=== PATIENT | female | born 1945 | race Caucasian/White ===

== ENCOUNTER 2016-12-27 12:08 | Emergency (ER) | payer MEDICARE, BC ==
[2016-12-27 12:26] VITALS: BP 121/77
--- NOTE | 2016-12-27 12:48 | EDM.PDOC ---
ED HPI GENERAL MEDICAL PROBLEM - General Chief Complaint: Headache Stated Complaint: PRESSURE R SIDE OF HEAD Time Seen by Provider: 12/27/16 12:33 Source of Information: Reports: Patient History Limitations: Reports: No Limitations - History of Present Illness INITIAL COMMENTS - FREE TEXT/NARRATIVE: Patient is a 71-year-old female presents to the ED complaining of right-sided head pressure that started approximately 2 days ago. She has a history of hemorrhagic stroke in 2013 with similar symptoms. States discomfort has been constant with increase noted with laying down. She is chronically anticoagulated with Coumadin. Denies any recent trauma. 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 Denies any vision changes, nausea/ vomiting, chest pain, shortness breath, dysuria, or any additional complaints. Last INR is unknown. Right Head Pain Score (Numeric/FACES): 5 - Related Data Allergies Allergy/AdvReac Type Severity Reaction Status Date / Time cephalexin Allergy Cannot Verified 12/27/16 12:27 Remember clarithromycin Allergy Pain Verified 12/27/16 12:27 codeine Allergy Cannot Verified 12/27/16 12:27 Remember Dairy Products Allergy Cannot Verified 12/27/16 12:27 Remember dextromethorphan Allergy Cannot Verified 12/27/16 12:27 Remember doxycycline Allergy Cannot Verified 12/27/16 12:27 Remember guaifenesin Allergy Cannot Verified 12/27/16 12:27 Remember Penicillins Allergy Rash Verified 12/27/16 12:27 phenobarbital Allergy Cannot Verified 12/27/16 12:27 Remember promethazine Allergy Diarrhea Verified 12/27/16 12:27 sodium benzoate Allergy Hives Verified 12/27/16 12:27 Sulfa (Sulfonamide Allergy Cannot Verified 12/27/16 12:27 Antibiotics) Remember Home Meds: Home Meds Ezetimibe [Zetia] 10 mg PO DAILY 12/13/13 [History] Acetaminophen [Tylenol] 325 mg PO TID PRN 09/15/15 [History] Famotidine 20 mg PO BID 09/15/15 [History] Metoprolol Tartrate [Metoprolol Tartrate] 12.5 mg PO BID 09/15/15 [History] Sertraline HCl [Zoloft] 100 mg PO DAILY 09/15/15 [History] Simvastatin [Zocor] 20 mg PO BEDTIME 09/15/15 [History] Warfarin [Coumadin] 0.5 mg PO SUMOTUTHFR 09/15/15 [History] Warfarin [Coumadin] 1 mg PO WESA 09/15/15 [History] Past Medical History HEENT History: Reports: Allergic Rhinitis, Impaired Vision Cardiovascular History: Reports: Afib, Heart Murmur, High Cholesterol, Hypertension, Pacemaker, Other (See Below) Other Cardiovascular History: aortic valve stenosis, palpitations Respiratory History: Reports: Other (See Below) Other Respiratory History: aspiration pneumonia Gastrointestinal History: Reports: GERD Genitourinary History: Reports: Urinary Incontinence [employer] History: Reports: Musculoskeletal History: Reports: Arthritis, Back Pain, Chronic, Osteoarthritis Neurological History: Reports: CVA, Seizure Other Neuro History: left sided paralysis Psychiatric History: Reports: Anxiety, Depression Other Psychiatric History: states she gets excited real easy Endocrine/Metabolic History: Reports: None Hematologic History: Reports: Other (See Below) Other Hematologic History: factor 5 leiden Immunologic History: Reports: None Oncologic (Cancer) History: Reports: None Dermatologic History: Reports: None - Past Surgical History Head Surgeries/Procedures: Reports: None HEENT Surgical History: Reports: Cataract Surgery Female Surgical History: Reports: Tubal Ligation Social & Family History - Family History Family Medical History: Noncontributory Neurological: Reports: CVA - Tobacco Use Smoking Status *Q: Never Smoker - Caffeine Use Caffeine Use: Reports: Soda - Alcohol Use Days Per Week of Alcohol Use: 0 - Recreational Drug Use Recreational Drug Use: No - Living Situation & Occupation Living situation: Reports: , with Spouse Occupation: Retired ED ROS GENERAL - Review of Systems Review Of Systems: ROS reveals no pertinent complaints other than HPI. - Physical Exam Exam: See Below Exam Limited By: No Limitations General Appearance: Alert, WD/WN, No Apparent Distress Eye Exam: Bilateral Eye: EOMI, PERRL Ears: Hearing Grossly Normal Nose: Normal Inspection Throat/Mouth: Normal Voice, No Airway Compromise Neck: Normal Inspection, Supple, Non-Tender, Limited Range of Motion (2nd to previous stroke). No: Carotid Bruit Respiratory/Chest: No Respiratory Distress, Lungs Clear, Normal Breath Sounds, No Accessory Muscle Use Cardiovascular: Normal Peripheral Pulses, Regular Rate, Rhythm, Systolic Murmur (3/6) GI/Abdominal: Normal Bowel Sounds, Soft, Non-Tender, No Organomegaly, No Distention Neuro Exam (Abbreviated): Alert, Oriented, CN II-XII Intact, Normal Cognition, Other (Left-sided paralysis with left-sided facial droop status post epidural hemorrhagic stroke in 2014.) Back Exam: Normal Inspection Extremities: Non-Tender, No Pedal Edema, Normal Capillary Refill Psychiatric: Normal Affect, Normal Mood Skin Exam: Warm, Dry, Intact, Normal Color Course - Vital Signs Last Recorded V/S: Last Vital Signs Temp 99.1 F 12/27/16 12:19 Pulse 63 12/27/16 12:19 Resp 16 12/27/16 12:19 BP 121/77 12/27/16 12:19 Pulse Ox 93 L 12/27/16 12:19 - Orders/Labs/Meds Orders: Active Orders 24 hr Category Date Time Status EKG Documentation Completion [RC] STAT Care 12/27/16 12:42 Active Labs: Laboratory Tests 12/27/16 12/27/16 12/27/16 Range/Units 13:10 13:10 13:10 WBC 6.97 (3.98-10.04) K/mm3 RBC 4.23 (3.98-5.22) M/mm3 Hgb 13.0 (11.2-15.7) gm/L Hct 41.1 (34.1-44.9) % MCV 97.2 H (79.4-94.8) fl MCH 30.7 (25.6-32.2) pg MCHC 31.6 L (32.2-35.5) g/dl RDW Std Deviation 49.8 H (36.4-46.3) fL Plt Count 275 (182-369) K/mm3 MPV 9.6 (9.4-12.3) fl Neut % (Auto) 75.5 H (34.0-71.1) % Lymph % (Auto) 13.1 L (19.3-51.7) % Mason % (Auto) 6.7 (4.7-12.5) % Eos % (Auto) 4.0 (0.7-5.8) Baso % (Auto) 0.4 (0.1-1.2) % Neut # (Auto) 5.26 (1.56-6.13) K/mm3 Lymph # (Auto) 0.91 L (1.18-3.74) K/mm3 Mason # (Auto) 0.47 H (0.24-0.36) K/mm3 Eos # (Auto) 0.28 (0.04-0.36) K/mm3 Baso # (Auto) 0.03 (0.01-0.08) K/mm3 PT 31.0 H (8.0-13.0) SECONDS INR 2.67 Sodium 144 (136-145) mEq/L Potassium 3.9 (3.5-5.1) mEq/L Chloride 106 (98-107) mEq/L Carbon Dioxide 33 H (21-32) mEq/L Anion Gap 8.9 (5-15) BUN 16 (7-18) mg/dL Creatinine 0.8 (0.55-1.02) mg/dL Est Cr Clr Drug Dosing 53.35 mL/min Estimated GFR (MDRD) > 60 (>60) mL/min BUN/Creatinine Ratio 20.0 H (14-18) Glucose 121 H (83-115) mg/dL Calcium 9.1 (8.5-10.1) mg/dL Total Bilirubin 0.3 (0.2-1.0) mg/dL AST 12 L (15-37) U/L ALT 12 L (14-59) U/L Alkaline Phosphatase 103 (46-116) U/L Total Protein 7.9 (6.4-8.2) g/dl Albumin 3.2 L (3.4-5.0) g/dl Globulin 4.7 gm/dL Albumin/Globulin Ratio 0.7 L (1-2) Meds: Medications Discontinued Medications Generic Name Dose Route Start Last Admin Trade Name Freq PRN Reason Stop Dose Admin Acetaminophen 325 mg 12/27/16 13:46 12/27/16 14:14 Tylenol PO 12/27/16 13:47 325 mg NOW ONE Administration - Re-Assessments/Exams Free Text/Narrative Re-Assessment/Exam: Initial labs and studies include: CBC, C14, PT/INR, UA w/micro, EKG, and Head wo contrast. Labs reviewed: White blood cell count 6.97, hemoglobin 13.0, neutrophil percentage is 75.5, lymphocyte percentage 13.1, INR is 2.67 which is therapeutic , sodium 144, potassium 3.9, AG 8.9, creatinine 0.8, and glucose 121. EKG revealed: Atrial paced rhythm with right bundle branch block and left anterior fascicular block. Rate of 59. No acute ST changes noted. Head CT without contrast impression: Old right-sided infarct. Nothing acute is appreciated on noncontrast head CT exam. No changes seen from prior head CT exam. Ordered Tylenol 325 by mouth. 12/27/16 15:23 headache has not improved with the Tylenol. I offered other medications to which she has refused. They are ready to go home. Discharge instructions as documented. Departure - Departure Time of Disposition: 15:24 Disposition: Home, Self-Care 01 Condition: Good Clinical Impression: Headache Qualifiers: Headache type: unspecified Headache chronicity pattern: acute headache Intractability: not intractable Qualified Code(s): R51 - Headache - Discharge Information Instructions: General Headache Without Cause Referrals: Zach Gonzalez MD [Primary Care Provider] - Forms: ED Department Discharge Additional Instructions: As discussed CT of the head did not reveal any acute findings. Etiology of headache unclear at this point. With history of hemorrhagic stroke to the right side may be the underlying reason why your having a headache. It is common for people to have headaches to areas that have had previous brain damage. Treatment is usually symptomatic care including Tylenol and ibuprofen in alternating fashion.You did not get relief with the Tylenol administered in the ED. Higher dose may be required. Your INR was 2.67 which is therapeutic. Please follow up with your PCP this coming week for reevaluation if symptoms are not drastically improving. Return to ED for any new or worsening symptoms. - My Orders Last 24 Hours: My Active Orders 12/27/16 12:42 EKG Documentation Completion [RC] STAT - Assessment/Plan Last 24 Hours: My Active Orders 12/27/16 12:42 EKG Documentation Completion [RC] STAT
--- NOTE | 2016-12-27 13:17 | CT ---
Head CT Technique: Multiple axial sections through the brain were obtained. Intravenous contrast was not utilized. Comparison: Previous head CT exam of 01/19/16. Findings: Old infarct is identified within the right frontal and temporal region. There is ex vacuole enlargement of the right lateral ventricle. No other abnormal parenchymal densities are seen. No midline shift or mass effect is seen. Bone window settings were reviewed which shows no acute calvarial abnormality. Visualized sinuses are clear. Impression: 1. Old right-sided infarct. Nothing acute is appreciated on noncontrast head CT exam. No significant change is seen from prior head CT exam. Diagnostic code #2
[2016-12-27] MEDS ORDERED: Acetaminophen 325 MG Tab PO ONE (13:46)
== END 2016-12-27 15:30 | disposition home or self-care (01) ==
LOC: JD.ED 12:08
DX: R51 Headache (principal); I48.91 Unspecified atrial fibrillation; E78.00 Pure hypercholesterolemia, unspecified; I10 Essential (primary) hypertension; K21.9 Gastro-esophageal reflux disease without esophagitis; Z86.73 Personal history of transient ischemic attack (TIA), and cerebral infarction without residual deficits; Z88.1 Allergy status to other antibiotic agents; Z88.5 Allergy status to narcotic agent; Z91.011 Allergy to milk products; Z88.0 Allergy status to penicillin; Z88.2 Allergy status to sulfonamides; Z79.899 Other long term (current) drug therapy; Z79.01 Long term (current) use of anticoagulants; Z98.49 Cataract extraction status, unspecified eye
CPT/HCPCS: 36415; 70450; 80053; 85025; 85610; 93005; 99285; A9270; 99283

== ENCOUNTER 2017-01-04 17:39 | Inpatient (IN) | payer MEDICARE, BC ==
--- NOTE | 2017-01-04 18:29 | EDM.PDOC ---
ED HPI GENERAL MEDICAL PROBLEM - General Chief Complaint: General Stated Complaint: [facility] EVAL Time Seen by Provider: 01/04/17 18:16 Source of Information: Reports: Patient History Limitations: Reports: No Limitations - History of Present Illness INITIAL COMMENTS - FREE TEXT/NARRATIVE: 71 y/o F presents requesting fci placement. 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 She has no other complaints. Her normally cares for her at home. She needs help with transfers. However he had radiation seeds implanted in his prostate yesterday for prostate surgery and was told that he cannot lift more than 20 pounds. They do not have family in town to help beyond today. They weren't aware of this lifting restriction so hadn't made plans for her care. She does have some respite care on occasion but that resources not available for the next 3 weeks. She also has home health for a bath a couple of times a week. However she needs assistance multiple times a day with transfers and this does require heavy lifting and family currently has no other options. They did discuss with one of the local nursing homes but were told that she would have to be admitted to the hospital first. She otherwise feels well, denies fever, chest pain, cough, abdominal pain, vomiting, diarrhea , urinary symptoms, or any new neurological symptoms. - Related Data Allergies Allergy/AdvReac Type Severity Reaction Status Date / Time cephalexin Allergy Cannot Verified 01/04/17 20:58 Remember clarithromycin Allergy Pain Verified 01/04/17 20:58 codeine Allergy Cannot Verified 01/04/17 20:58 Remember Dairy Products Allergy Cannot Verified 01/04/17 20:58 Remember dextromethorphan Allergy Cannot Verified 01/04/17 20:58 Remember doxycycline Allergy Cannot Verified 01/04/17 20:58 Remember guaifenesin Allergy Cannot Verified 01/04/17 20:58 Remember Penicillins Allergy Rash Verified 01/04/17 20:58 phenobarbital Allergy Cannot Verified 01/04/17 20:58 Remember promethazine Allergy Diarrhea Verified 01/04/17 20:58 sodium benzoate Allergy Hives Verified 01/04/17 20:58 Sulfa (Sulfonamide Allergy Cannot Verified 01/04/17 20:58 Antibiotics) Remember Home Meds: Home Meds Ezetimibe [Zetia] 10 mg PO DAILY 12/13/13 [History] Acetaminophen [Tylenol] 325 mg PO TID PRN 09/15/15 [History] Famotidine 20 mg PO BID 09/15/15 [History] Metoprolol Tartrate [Metoprolol Tartrate] 12.5 mg PO BID 09/15/15 [History] Sertraline HCl [Zoloft] 100 mg PO DAILY 09/15/15 [History] Simvastatin [Zocor] 20 mg PO BEDTIME 09/15/15 [History] Warfarin [Coumadin] 0.5 mg PO SUMOTUTHFR 09/15/15 [History] Warfarin [Coumadin] 1 mg PO WESA 09/15/15 [History] Acetaminophen [Tylenol] 325 mg PO BEDTIME 01/04/17 [History] Past Medical History HEENT History: Reports: Allergic Rhinitis, Impaired Vision Cardiovascular History: Reports: Afib, Heart Murmur, High Cholesterol, Hypertension, Pacemaker, Other (See Below) Other Cardiovascular History: aortic valve stenosis, palpitations Respiratory History: Reports: Other (See Below) Other Respiratory History: aspiration pneumonia Gastrointestinal History: Reports: GERD Genitourinary History: Reports: Urinary Incontinence [employer] History: Reports: Musculoskeletal History: Reports: Arthritis, Back Pain, Chronic, Osteoarthritis Neurological History: Reports: CVA, Seizure Other Neuro History: left sided paralysis Psychiatric History: Reports: Anxiety, Depression Other Psychiatric History: states she gets excited real easy Endocrine/Metabolic History: Reports: None Hematologic History: Reports: Other (See Below) Other Hematologic History: factor 5 leiden Immunologic History: Reports: None Oncologic (Cancer) History: Reports: None Dermatologic History: Reports: None - Past Surgical History Head Surgeries/Procedures: Reports: None HEENT Surgical History: Reports: Cataract Surgery Female Surgical History: Reports: Tubal Ligation Social & Family History - Family History Family Medical History: Noncontributory Neurological: Reports: CVA - Tobacco Use Smoking Status *Q: Never Smoker - Caffeine Use Caffeine Use: Reports: Soda - Alcohol Use Days Per Week of Alcohol Use: 0 - Recreational Drug Use Recreational Drug Use: No - Living Situation & Occupation Living situation: Reports: , with Spouse Occupation: Retired ED ROS GENERAL - Review of Systems Review Of Systems: See Below Constitutional: Denies: Fever HEENT: Reports: No Symptoms Respiratory: Denies: Shortness of Breath Cardiovascular: Denies: Chest Pain Endocrine: Reports: No Symptoms GI/Abdominal: Denies: Abdominal Pain : Denies: Dysuria Musculoskeletal: Reports: No Symptoms Skin: Reports: No Symptoms Neurological: Denies: Headache Psychiatric: Reports: No Symptoms Hematologic/Lymphatic: Reports: No Symptoms ED EXAM, GENERAL - Physical Exam Exam: See Below Exam Limited By: No Limitations General Appearance: Alert, WD/WN, No Apparent Distress Eye Exam: Bilateral Eye: PERRL Ears: Normal External Exam Nose: Normal Inspection Throat/Mouth: Normal Inspection, Normal Voice, No Airway Compromise Head: Atraumatic, Normocephalic Neck: Normal Inspection, Supple, Non-Tender, Full Range of Motion Respiratory/Chest: No Respiratory Distress, Lungs Clear, Normal Breath Sounds, No Accessory Muscle Use, Chest Non-Tender Cardiovascular: Normal Peripheral Pulses, Regular Rate, Rhythm, No Edema, No Murmur GI/Abdominal: Soft, Non-Tender, No Distention. No: Rebound Extremities: Normal Inspection Neurological: Alert, Oriented, Normal Cognition Psychiatric: Normal Affect, Normal Mood Skin Exam: Warm, Dry, Intact, Normal Color, No Rash Course - Vital Signs Last Recorded V/S: Last Vital Signs Temp 36.6 C 01/05/17 05:15 Pulse 60 01/05/17 05:15 Resp 14 01/05/17 05:15 BP 100/66 01/05/17 05:15 Pulse Ox 92 L 01/05/17 05:15 - Orders/Labs/Meds Orders: Active Orders 24 hr Category Date Time Status Cardiac Monitoring [RC] CONTINUOUS Care 01/04/17 19:07 Active Height and Weight [RC] 04 Care 01/04/17 19:06 Active Intake and Output [RC] 04,16 Care 01/04/17 19:06 Active Oxygen Therapy [RC] PRN Care 01/04/17 19:06 Active RT Aerosol Therapy [RC] ASDIRECTED Care 01/04/17 19:09 Active Up With Assistance [RC] ASDIRECTED Care 01/04/17 19:06 Active Up ad Juanita [RC] Care 01/04/17 19:06 Active VTE/DVT Education [RC] PER UNIT ROUTINE Care 01/04/17 19:06 Active Vital Signs [RC] Q4HR Care 01/04/17 19:06 Active Consult to Case Management [CONS] Routine Cons 01/04/17 19:06 Active Consult to Macerator Operator [CONS] Routine Cons 01/04/17 19:06 Active Consult to Spiritual Care [CONS] Routine Cons 01/04/17 19:06 Active OT Evaluation and Treatment [CONS] Routine Cons 01/04/17 19:06 Active PT Evaluation and Treatment [CONS] Routine Cons 01/04/17 19:06 Active Heart Healthy Diet [DIET] Diet 01/04/17 Dinner Active BASIC METABOLIC PANEL,BMP [CHEM] AM Lab 01/05/17 06:01 Received CBC WITH AUTO DIFF [HEME] AM Lab 01/05/17 06:01 Received MAGNESIUM [CHEM] AM Lab 01/05/17 06:01 Received Acetaminophen [Tylenol] Med 01/04/17 21:00 Active 325 mg PO BEDTIME Acetaminophen [Tylenol] Med 01/04/17 19:06 Active 650 mg PO Q4H PRN Acetaminophen/HYDROcodone [[place] 325-5 MG] Med 01/04/17 19:06 Active 1 tab PO Q4H PRN Albuterol/Ipratropium [DuoNeb 3.0-0.5 MG/3 ML] Med 01/04/17 19:06 Active 3 ml NEB Q4H PRN Bisacodyl [Dulcolax] Med 01/04/17 19:06 Active 5 mg PO DAILY PRN Docusate Sodium [Colace] Med 01/04/17 19:06 Active 100 mg PO BID PRN Docusate Sodium/Sennosides [Senna Plus] Med 01/04/17 19:06 Active 1 tab PO BID PRN Ezetimibe [Zetia] Med 01/05/17 09:00 Active 10 mg PO DAILY Famotidine [Pepcid] Med 01/04/17 21:00 Active 20 mg PO BID HYDROmorphone [Dilaudid] Med 01/04/17 19:06 Active 0.25 mg IVPUSH Q2H PRN LORazepam [Ativan] Med 01/04/17 19:06 Active 0.5 mg IV Q6H PRN LORazepam [Ativan] Med 01/04/17 19:10 Active 2 mg IVPUSH Q4H PRN Magnesium Rep Pharmacy to Dose [Pharmacy to Dose - Med 01/04/17 19:15 Pending Magnesium Replacement] 1 dose .XX ASDIRECTED Metoprolol Tartrate [Lopressor] Med 01/04/17 21:00 Active 12.5 mg PO BID Metoprolol Tartrate [Lopressor] Med 01/04/17 19:10 Active 5 mg IVPUSH Q4H PRN Ondansetron [Zofran] Med 01/04/17 19:06 Active 4 mg IV Q6H PRN Polyethylene Glycol 3350 [MiraLAX] Med 01/04/17 19:06 Active 17 gm PO DAILY PRN Potassium Rep Pharmacy to Dose [Pharmacy to Dose - Med 01/04/17 19:15 Pending Potassium Replacement] 1 dose .XX ASDIRECTED Promethazine [Phenergan] 12.5 mg Med 01/04/17 19:06 Active Sodium Chloride 0.9% [Normal Saline] 50 ml IV Q6H Sertraline [Zoloft] Med 01/05/17 09:00 Active 100 mg PO DAILY Simvastatin [Zocor] Med 01/04/17 21:00 Active 20 mg PO BEDTIME Temazepam [Restoril] Med 01/04/17 19:06 Active 7.5 mg PO BEDTIME PRN Warfarin [Coumadin] Med 01/05/17 18:00 Active 0.5 mg PO [id number]@1800 Precautions [COMM] Routine Oth 01/04/17 19:14 Ordered Resuscitation Status Routine Resus Stat 01/04/17 19:06 Ordered Medication Orders Acetaminophen (Tylenol) 650 mg PO Q4H PRN PRN Reason: Pain (Mild 1-3)/fever Acetaminophen (Tylenol) 325 mg PO BEDTIME [facility] Last Admin: 01/04/17 21:04 Dose: 325 mg Hydrocodone Bitart/Acetaminophen ([place] 325-5 Mg) 1 tab PO Q4H PRN PRN Reason: Pain (moderate 4-6) Albuterol/Ipratropium (Duoneb 3.0-0.5 Mg/3 Ml) 3 ml NEB Q4H PRN PRN Reason: Shortness Of Breath/wheezing Bisacodyl (Dulcolax) 5 mg PO DAILY PRN PRN Reason: Constipation Docusate Sodium (Colace) 100 mg PO BID PRN PRN Reason: Constipation Ezetimibe (Zetia) 10 mg PO DAILY [facility] Famotidine (Pepcid) 20 mg PO BID [facility] Last Admin: 01/04/17 21:04 Dose: 20 mg Hydromorphone HCl (Dilaudid) 0.25 mg IVPUSH Q2H PRN PRN Reason: Pain (severe 7-10) Promethazine HCl 12.5 mg/ (Sodium Chloride) 50.5 mls @ 100 mls/hr IV Q6H PRN PRN Reason: Nausea/Vomiting Lorazepam (Ativan) 0.5 mg IV Q6H PRN PRN Reason: Anxiety Lorazepam (Ativan) 2 mg IVPUSH Q4H PRN PRN Reason: Seizures Magnesium Sulfate (Pharmacy To Dose - Magnesium Replacement) 1 dose .XX ASDIRECTED [facility] Metoprolol Tartrate (Lopressor) 5 mg IVPUSH Q4H PRN PRN Reason: Tachycardia Metoprolol Tartrate (Lopressor) 12.5 mg PO BID [facility] Last Admin: 01/04/17 21:01 Dose: 12.5 mg Ondansetron HCl (Zofran) 4 mg IV Q6H PRN PRN Reason: Nausea/Vomiting Polyethylene Glycol (Miralax) 17 gm PO DAILY PRN PRN Reason: Constipation Potassium Chloride (Pharmacy To Dose - Potassium Replacement) 1 dose .XX ASDIRECTED [facility] Senna/Docusate Sodium (Senna Plus) 1 tab PO BID PRN PRN Reason: Constipation Sertraline HCl (Zoloft) 100 mg PO DAILY [facility] Simvastatin (Zocor) 20 mg PO BEDTIME [facility] Last Admin: 01/04/17 21:05 Dose: 20 mg Temazepam (Restoril) 7.5 mg PO BEDTIME PRN PRN Reason: Sleep Warfarin Sodium (Coumadin) 0.5 mg PO SuMoTuThFr@1800 [facility] Warfarin Sodium (Coumadin) 1 mg PO WeSa@1800 [facility] Last Admin: 01/04/17 22:44 Dose: 1 mg Labs: Laboratory Tests 01/04/17 Range/Units 19:26 PT 10.5 (8.0-13.0) SECONDS INR 0.97 Meds: Medications Generic Name Dose Route Start Last Admin Trade Name Freq PRN Reason Stop Dose Admin Acetaminophen 650 mg 01/04/17 19:06 Tylenol PO Q4H PRN Pain (Mild 1-3)/fever Acetaminophen 325 mg 01/04/17 21:00 01/04/17 21:04 Tylenol PO 325 mg BEDTIME [facility] Administration Hydrocodone Bitart/Acetaminophen 1 tab 01/04/17 19:06 [place] 325-5 Mg PO Q4H PRN Pain (moderate 4-6) Albuterol/Ipratropium 3 ml 01/04/17 19:06 Duoneb 3.0-0.5 Mg/3 Ml NEB Q4H PRN Shortness Of Breath/wheezing Bisacodyl 5 mg 01/04/17 19:06 Dulcolax PO DAILY PRN Constipation Docusate Sodium 100 mg 01/04/17 19:06 Colace PO BID PRN Constipation Ezetimibe 10 mg 01/05/17 09:00 Zetia PO DAILY [facility] Famotidine 20 mg 01/04/17 21:00 01/04/17 21:04 Pepcid PO 20 mg BID [facility] Administration Hydromorphone HCl 0.25 mg 01/04/17 19:06 Dilaudid IVPUSH Q2H PRN Pain (severe 7-10) Promethazine HCl 12.5 mg/ 50.5 mls @ 100 mls/hr 01/04/17 19:06 Sodium Chloride IV Q6H PRN Nausea/Vomiting Lorazepam 0.5 mg 01/04/17 19:06 Ativan IV Q6H PRN Anxiety Lorazepam 2 mg 01/04/17 19:10 Ativan IVPUSH Q4H PRN Seizures Magnesium Sulfate 1 dose 01/04/17 19:15 Pharmacy To Dose - Magnesium Replacement .XX ASDIRECTED [facility] Metoprolol Tartrate 5 mg 01/04/17 19:10 Lopressor IVPUSH Q4H PRN Tachycardia Metoprolol Tartrate 12.5 mg 01/04/17 21:00 01/04/17 21:01 Lopressor PO 12.5 mg BID [facility] Administration Ondansetron HCl 4 mg 01/04/17 19:06 Zofran IV Q6H PRN Nausea/Vomiting Polyethylene Glycol 17 gm 01/04/17 19:06 Miralax PO DAILY PRN Constipation Potassium Chloride 1 dose 01/04/17 19:15 Pharmacy To Dose - Potassium Replacement .XX ASDIRECTED [facility] Senna/Docusate Sodium 1 tab 01/04/17 19:06 Senna Plus PO BID PRN Constipation Sertraline HCl 100 mg 01/05/17 09:00 Zoloft PO DAILY [facility] Simvastatin 20 mg 01/04/17 21:00 01/04/17 21:05 Zocor PO 20 mg BEDTIME [facility] Administration Temazepam 7.5 mg 01/04/17 19:06 Restoril PO BEDTIME PRN Sleep Warfarin Sodium 0.5 mg 01/05/17 18:00 Coumadin PO SuMoTuThFr@1800 [facility] Warfarin Sodium 1 mg 01/04/17 22:15 01/04/17 22:44 Coumadin PO 1 mg WeSa@1800 [facility] Administration Discontinued Medications Generic Name Dose Route Start Last Admin Trade Name Dilip PRN Reason Stop Dose Admin Acetaminophen 325 mg 01/04/17 19:10 Tylenol PO TID PRN Pain Hydralazine HCl 20 mg 01/04/17 19:10 Apresoline IVPUSH Q4H PRN Hypertension - Re-Assessments/Exams Free Text/Narrative Re-Assessment/Exam: 01/04/17 18:[address] Harris who agrees to admit the patient. No studies ordered as she is not acutely ill. I do not feel that it is safe for the patient to go home as her has significant restrictions and her has also checked into the emergency department due to blood in the urine. If she were to be discharged, she would have no one able to help her with transfers and self care at home. It would be dangerous and inhumane to send her home with no one to care for her. We have no alternative but to admit her - [facility] will not accept her without an admission and we have limited ability to arrange alternate pediatric social worker for her on a Friday night. She has no other family available to help at this time. 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
--- NOTE | 2017-01-04 19:01 | PCM.HP ---
H&P History of Present Illness - General Date of Service: 01/04/17 Admit Problem/Dx: Inability to Care for Herself Source of Information: Patient, Family, Old Records, Provider, RN Notes Reviewed History Limitations: Reports: Physical Impairment - History of Present Illness Initial Comments - Free Text/Narative: This is a 71-year-old elderly white female with past medical history of allergic rhinitis, impaired vision, atrial fibrillation on warfarin, hypertension, hyperlipidemia, status post pacemaker placement, aortic valve stenosis, GERD, urinary incontinence, chronic back pain, OA/DJD, seizure disorder, anxiety, and depression who presents to the emergency department requesting half-way placement. Patient carries a history of left-sided paralysis secondary to CVA. Her is her primary caregiver at home. Unfortunately, her has been ill himself with prostate cancer. He recently undergone radiation seed implantation and was told he cannot lift more than 20 pounds. Patient has some respite care available but not for the next 3 weeks. Her family attempted to place her at [facility] but they were told she would have to come in for admission. Currently, she has no complaints. She denies any systemic signs of infections. She presents with no new neurological symptoms. The patient is being admitted for inability to care for herself and for half-way placement. She is full code. - Related Data Allergies/Adverse Reactions: Allergies Allergy/AdvReac Type Severity Reaction Status Date / Time cephalexin Allergy Cannot Verified 12/27/16 12:27 Remember clarithromycin Allergy Pain Verified 12/27/16 12:27 codeine Allergy Cannot Verified 12/27/16 12:27 Remember Dairy Products Allergy Cannot Verified 12/27/16 12:27 Remember dextromethorphan Allergy Cannot Verified 12/27/16 12:27 Remember doxycycline Allergy Cannot Verified 12/27/16 12:27 Remember guaifenesin Allergy Cannot Verified 12/27/16 12:27 Remember Penicillins Allergy Rash Verified 12/27/16 12:27 phenobarbital Allergy Cannot Verified 12/27/16 12:27 Remember promethazine Allergy Diarrhea Verified 12/27/16 12:27 sodium benzoate Allergy Hives Verified 12/27/16 12:27 Sulfa (Sulfonamide Allergy Cannot Verified 12/27/16 12:27 Antibiotics) Remember Home Medications: Home Meds Ezetimibe [Zetia] 10 mg PO DAILY 12/13/13 [History] Acetaminophen [Tylenol] 325 mg PO TID PRN 09/15/15 [History] Famotidine 20 mg PO BID 09/15/15 [History] Metoprolol Tartrate [Metoprolol Tartrate] 12.5 mg PO BID 09/15/15 [History] Sertraline HCl [Zoloft] 100 mg PO DAILY 09/15/15 [History] Simvastatin [Zocor] 20 mg PO BEDTIME 09/15/15 [History] Warfarin [Coumadin] 0.5 mg PO SUMOTUTHFR 09/15/15 [History] Warfarin [Coumadin] 1 mg PO WESA 09/15/15 [History] Acetaminophen [Tylenol] 325 mg PO BEDTIME 01/04/17 [History] Past Medical History HEENT History: Reports: Allergic Rhinitis, Impaired Vision Cardiovascular History: Reports: Afib, Heart Murmur, High Cholesterol, Hypertension, Pacemaker, Other (See Below) Other Cardiovascular History: aortic valve stenosis, palpitations Respiratory History: Reports: Other (See Below) Other Respiratory History: aspiration pneumonia Gastrointestinal History: Reports: GERD Genitourinary History: Reports: Urinary Incontinence 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: Musculoskeletal History: Reports: Arthritis, Back Pain, Chronic, Osteoarthritis Neurological History: Reports: CVA, Seizure Other Neuro History: left sided paralysis Psychiatric History: Reports: Anxiety, Depression Other Psychiatric History: states she gets excited real easy Endocrine/Metabolic History: Reports: None Hematologic History: Reports: Other (See Below) Other Hematologic History: factor 5 leiden Immunologic History: Reports: None Oncologic (Cancer) History: Reports: None Dermatologic History: Reports: None - Past Surgical History Head Surgeries/Procedures: Reports: None HEENT Surgical History: Reports: Cataract Surgery Female Surgical History: Reports: Tubal Ligation Social & Family History - Family History Family Medical History: Noncontributory Neurological: Reports: CVA - Tobacco Use Smoking Status *Q: Never Smoker - Caffeine Use Caffeine Use: Reports: Soda - Alcohol Use Days Per Week of Alcohol Use: 0 - Recreational Drug Use Recreational Drug Use: No - Living Situation & Occupation Living situation: Reports: , with Spouse Occupation: Retired [employer] Review of Systems - Review of Systems: Review Of Systems: See Below General: Denies: Fever, Chills, Malaise, Weakness, Fatigue HEENT: Reports: No Symptoms Pulmonary: Denies: Shortness of Breath Cardiovascular: Denies: Chest Pain Gastrointestinal: Denies: Abdominal Pain, Nausea, Vomiting Genitourinary: Reports: No Symptoms Musculoskeletal: Reports: No Symptoms Skin: Denies: Cyanosis, Rash Psychiatric: Denies: Depression, Mood Lability, Anxiety, Agitation, Hallucinations, Suicidal Ideation Neurological: Reports: Pre-Existing Deficit, Difficulty Walking, Weakness, Gait Disturbance. Denies: Confusion Hematologic/Lymphatic: Reports: No Symptoms Immunologic: Reports: No Symptoms Exam - Exam Exam: See Below - Vital Signs Vital Signs: Last Vital Signs Temp 37.0 C 01/04/17 17:58 Pulse 60 01/04/17 17:58 Resp 22 H 01/04/17 17:58 BP 117/79 01/04/17 17:58 Pulse Ox 91 L 01/04/17 17:58 Weight: 68.039 kg - Exam General: Alert, Oriented, Cooperative, Other (Complete hemiparesis on her left side) HEENT: Conjunctiva Clear, EOMI, Hearing Intact, Mucosa Moist & [place], Nares Patent, Normal Nasal Septum, Posterior Pharynx Clear, Pupils Equal, Pupils Reactive, Other (w/o denture on her upper front; noticeable facial asymmetry) Neck: Supple, Trachea Midline, Full Range of Motion, JVD Lungs: Clear to Auscultation, Normal Respiratory Effort Cardiovascular: Irregular Rhythm, Systolic Murmur, Other (Pacemaker on her right upper thorax) GI/Abdominal Exam: Normal Bowel Sounds, Soft, Non-Tender, No Organomegaly, No Distention, No Abnormal Bruit, No Mass (Female) Exam: Deferred Rectal (Female) Exam: Deferred Back Exam: Normal Inspection, Decreased Range of Motion Extremities: Normal Inspection (right lower extremity), Normal Range of Motion ( right lower extremity), No Pedal Edema (right lower extremity), Normal Capillary Refill (right lower extremity), Other (Left sided hemiparesis) Peripheral Pulses: 2+: Posterior Tibial (L), Posterior Tibial (R), Dorsalis Pedis (L), Dorsalis Pedis (R) Skin: Warm, Dry, Intact Neuro Extensive - Mental Status: Oriented x3, Normal Cognition, Memory Intact Neuro Extensive - Motor, Sensory, Reflexes: Abnormal Gait, Other (Left Sided Hemiparesis) Psychiatric: Alert, Normal Mood. No: Normal Affect *Q Meaningful Use (ADM) - VTE *Q VTE Criteria *Q: - Stroke *Q Stroke Criteria *Q: - AMI *Q AMI Criteria *Q: Problem List Initiated/Reviewed/Updated: Yes Assessment/Plan Comment:: Assessment/Plan: Acute: Inability To Care for Self - She is crippled due to hx/o CVA - They have children but her primary caregiver is her - has prostate cancer and recently had radiation sees implanted; he was advised to no lifting > 20 lbs - They attempted to call [facility] for placement but w/o any success Requesting [facility] Placement Chronic: Allergic Rhinitis Impaired vision Atrial Fibrillation on warfarin Hypertension Hyperlipidemia Status Post Pacemaker Placement Aortic Valve Stenosis GERD Urinary Incontinence Back Pain OA/DJD Left-Sided Paralysis Secondary to CVA History of CVA Seizure Disorder Anxiety Depression Plan: Admit to Med-Surg w/ Tele Routine AM Labs INR in AM Resume Home Meds PT/OT consult Aspiration/Fall Precautions SW/CM for d/c planning Code status: 1
[2017-01-04] MEDS ORDERED: Temazepam 7.5 MG Cap PO PRN (19:06)
[2017-01-04] MEDS ORDERED: Acetaminophen/HYDROcodone 325-5 MG Tab PO PRN (19:06)
[2017-01-04] MEDS ORDERED: Docusate Sodium 100 MG Cap PO PRN (19:06)
[2017-01-04] MEDS ORDERED: Bisacodyl 5 MG Tab PO PRN (19:06)
[2017-01-04] MEDS ORDERED: HYDROmorphone 0.5 MG/0.5 ML Syringe IVPUSH PRN (19:06)
[2017-01-04] MEDS ORDERED: Promethazine 12.5 MG in Sodium Chloride 0.9% 50 ML IV PRN (19:06)
[2017-01-04] MEDS ORDERED: LORazepam 2 MG/ML MDV IV PRN (19:06)
[2017-01-04] MEDS ORDERED: Albuterol/Ipratropium 3.0-0.5 MG/3 ML Neb Soln NEB PRN (19:06)
[2017-01-04] MEDS ORDERED: Polyethylene Glycol 3350 Powder 17 GM Packet PO PRN (19:06)
[2017-01-04] MEDS ORDERED: Ondansetron 4 MG/2 ML SDV IV PRN (19:06)
[2017-01-04] MEDS ORDERED: hydrALAZINE 20 MG/ML SDV IVPUSH PRN (19:10)
[2017-01-04] MEDS ORDERED: LORazepam 2 MG/ML MDV IVPUSH PRN (19:10)
[2017-01-04] MEDS ORDERED: Metoprolol Tartrate 5 MG/5 ML SDV IVPUSH PRN (19:10)
[2017-01-04] MEDS ORDERED: Acetaminophen 325 MG Tab PO PRN (19:10)
[2017-01-04] MEDS: Metoprolol Tartrate 25 MG Tab PO SCH (21:01)
[2017-01-04] MEDS: Famotidine 20 MG Tab PO SCH (21:04)
[2017-01-04] MEDS: Acetaminophen 325 MG Tab PO SCH (21:04)
[2017-01-04] MEDS: Simvastatin 20 MG Tab PO SCH (21:05)
--- NOTE | 2017-01-05 07:49 | PCM.PN ---
- General Info Date of Service: 01/05/17 Admission Dx/Problem (Free Text): Inability to Care for Herself Subjective Update: Follow Up Functional Status: Reports: Pain Controlled, Tolerating Diet, Urinating. Denies : New Symptoms - Review of Systems General: Denies: Fever, Weakness, Fatigue, Malaise, Chills HEENT: Reports: No Symptoms Pulmonary: Denies: Shortness of Breath Cardiovascular: Denies: Chest Pain Gastrointestinal: Denies: Abdominal Pain, Nausea, Vomiting Genitourinary: Reports: No Symptoms Musculoskeletal: Reports: No Symptoms Skin: Denies: Cyanosis, Pallor, Diaphoresis Neurological: Reports: Pre-Existing Deficit, Difficulty Walking, Weakness, Gait Disturbance Psychiatric: Reports: Mood Lability. Denies: Confusion, Depression, Anxiety, Agitation, Hallucinations Systems Review Comment:: No overnight or acute issues. She is doing relatively well. She complaints of the type of food she is getting from our cafeteria. She has no medical complaints. - Patient Data Vitals - Most Recent: Last Vital Signs Temp 36.6 C 01/05/17 05:15 Pulse 60 01/05/17 05:15 Resp 14 01/05/17 05:15 BP 100/66 01/05/17 05:15 Pulse Ox 92 L 01/05/17 05:15 Weight - Most Recent: 67.177 kg I&O - Last 24 Hours: Intake & Output 01/04/17 01/05/17 01/05/17 22:59 06:59 14:59 Intake Total 360 Output Total 200 Balance 160 Lab Results Last 24 Hours: Laboratory Results - last 24 hr 01/04/17 01/05/17 01/05/17 Range/Units 20:20 06:01 06:01 WBC 6.32 (3.98-10.04) K/mm3 RBC 3.82 L (3.98-5.22) M/mm3 Hgb 11.7 (11.2-15.7) gm/L Hct 37.6 (34.1-44.9) % MCV 98.4 H (79.4-94.8) fl MCH 30.6 (25.6-32.2) pg MCHC 31.1 L (32.2-35.5) g/dl RDW Std Deviation 49.7 H (36.4-46.3) fL Plt Count 268 (182-369) K/mm3 MPV 9.7 (9.4-12.3) fl Neut % (Auto) 65.2 (34.0-71.1) % Lymph % (Auto) 19.9 (19.3-51.7) % Riley % (Auto) 9.0 (4.7-12.5) % Eos % (Auto) 5.2 (0.7-5.8) Baso % (Auto) 0.5 (0.1-1.2) % Neut # (Auto) 4.12 (1.56-6.13) K/mm3 Lymph # (Auto) 1.26 (1.18-3.74) K/mm3 Riley # (Auto) 0.57 H (0.24-0.36) K/mm3 Eos # (Auto) 0.33 (0.04-0.36) K/mm3 Baso # (Auto) 0.03 (0.01-0.08) K/mm3 PT 27.7 H (8.0-13.0) SECONDS INR 2.40 MRSA (PCR) Negative Med Orders - Current: Current Medications Acetaminophen (Tylenol) 650 mg PO Q4H PRN PRN Reason: Pain (Mild 1-3)/fever Acetaminophen (Tylenol) 325 mg PO BEDTIME [facility] Last Admin: 01/04/17 21:04 Dose: 325 mg Hydrocodone Bitart/Acetaminophen ([place] 325-5 Mg) 1 tab PO Q4H PRN PRN Reason: Pain (moderate 4-6) Albuterol/Ipratropium (Duoneb 3.0-0.5 Mg/3 Ml) 3 ml NEB Q4H PRN PRN Reason: Shortness Of Breath/wheezing Bisacodyl (Dulcolax) 5 mg PO DAILY PRN PRN Reason: Constipation Docusate Sodium (Colace) 100 mg PO BID PRN PRN Reason: Constipation Ezetimibe (Zetia) 10 mg PO DAILY [facility] Famotidine (Pepcid) 20 mg PO BID [facility] Last Admin: 01/04/17 21:04 Dose: 20 mg Hydromorphone HCl (Dilaudid) 0.25 mg IVPUSH Q2H PRN PRN Reason: Pain (severe 7-10) Promethazine HCl 12.5 mg/ (Sodium Chloride) 50.5 mls @ 100 mls/hr IV Q6H PRN PRN Reason: Nausea/Vomiting Lorazepam (Ativan) 0.5 mg IV Q6H PRN PRN Reason: Anxiety Lorazepam (Ativan) 2 mg IVPUSH Q4H PRN PRN Reason: Seizures Magnesium Sulfate (Pharmacy To Dose - Magnesium Replacement) 1 dose .XX ASDIRECTED [facility] Metoprolol Tartrate (Lopressor) 5 mg IVPUSH Q4H PRN PRN Reason: Tachycardia Metoprolol Tartrate (Lopressor) 12.5 mg PO BID [facility] Last Admin: 01/04/17 21:01 Dose: 12.5 mg Ondansetron HCl (Zofran) 4 mg IV Q6H PRN PRN Reason: Nausea/Vomiting Polyethylene Glycol (Miralax) 17 gm PO DAILY PRN PRN Reason: Constipation Potassium Chloride (Pharmacy To Dose - Potassium Replacement) 1 dose .XX ASDIRECTED [facility] Senna/Docusate Sodium (Senna Plus) 1 tab PO BID PRN PRN Reason: Constipation Sertraline HCl (Zoloft) 100 mg PO DAILY [facility] Simvastatin (Zocor) 20 mg PO BEDTIME [facility] Last Admin: 01/04/17 21:05 Dose: 20 mg Temazepam (Restoril) 7.5 mg PO BEDTIME PRN PRN Reason: Sleep Warfarin Sodium (Coumadin) 0.5 mg PO SuMoTuThFr@1800 [facility] Warfarin Sodium (Coumadin) 1 mg PO WeSa@1800 [facility] Last Admin: 01/04/17 22:44 Dose: 1 mg Discontinued Medications Acetaminophen (Tylenol) 325 mg PO TID PRN PRN Reason: Pain Hydralazine HCl (Apresoline) 20 mg IVPUSH Q4H PRN PRN Reason: Hypertension - Exam General: Alert, Oriented, Cooperative, No Acute Distress, Other (She has baseline left sided hemiparesis) HEENT: Pupils Equal, Pupils Reactive, Mucous Membr. Moist/[place], Other (wihout upper front teeth; she has facial asymmetry) Neck: Supple, Trachea Midline Lungs: Clear to Auscultation, Normal Respiratory Effort Cardiovascular: Regular Rate, Regular Rhythm GI/Abdominal Exam: Normal Bowel Sounds, Soft, Non-Tender, No Organomegaly, No Distention, No Abnormal Bruit, No Mass (Female) Exam: Deferred Back Exam: Normal Inspection, Decreased Range of Motion Extremities: Normal Inspection, Normal Range of Motion, Non-Tender, No Pedal Edema Peripheral Pulses: 2+: Dorsalis Pedis (L), Dorsalis Pedis (R) Skin: Warm, Dry, Intact Neurological: No New Focal Deficit, Sensation Intact Psy/Mental Status: Alert, Normal Mood. No: Normal Affect - Problem List Review Problem List Initiated/Reviewed/Updated: Yes - My Orders Last 24 Hours: My Active Orders 01/04/17 20:02 Patient Status [ADT] Routine 01/04/17 22:15 Warfarin [Coumadin] 1 mg PO WeSa@1800 01/06/17 05:11 INR,PT,PROTHROMBIN TIME [[facility]] AM 01/07/17 05:11 INR,PT,PROTHROMBIN TIME [[facility]AG] AM 01/08/17 05:11 INR,PT,PROTHROMBIN TIME [COAG] AM - Plan Plan:: Assessment/Plan: Acute: Inability To Care for Self - She is crippled due to hx/o CVA - They have children but her primary caregiver is her - has prostate cancer and recently had radiation sees implanted; he was advised to no lifting > 20 lbs - They attempted to call [facility] for placement but w/o any success Requesting [facility] Placement S/p Subtherapeutic INR - Her INR is now 2.40 from 0.97 Chronic: Allergic Rhinitis Impaired vision Atrial Fibrillation on warfarin Hypertension Hyperlipidemia Status Post Pacemaker Placement Aortic Valve Stenosis GERD Urinary Incontinence Back Pain 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
[2017-01-05] MEDS ORDERED: Magnesium Sulfate/Water 2 GM in Premix Bag 1 BAG IV ONE (09:00)
[2017-01-05] MEDS: Metoprolol Tartrate 25 MG Tab PO SCH ×2 (09:39→21:05)
[2017-01-05] MEDS: Ezetimibe 10 MG Tab PO SCH (09:39)
[2017-01-05] MEDS: Famotidine 20 MG Tab PO SCH ×2 (09:39→21:06)
[2017-01-05] MEDS: Sertraline 50 MG Tab PO SCH (09:40)
[2017-01-05] MEDS: Acetaminophen 325 MG Tab PO PRN (17:51)
[2017-01-05] MEDS: Acetaminophen 325 MG Tab PO SCH (21:04)
[2017-01-05] MEDS: Simvastatin 20 MG Tab PO SCH (21:05)
[2017-01-06] MEDS: Famotidine 20 MG Tab PO SCH ×2 (08:54→20:14)
[2017-01-06] MEDS: Ezetimibe 10 MG Tab PO SCH (08:55)
[2017-01-06] MEDS: Metoprolol Tartrate 25 MG Tab PO SCH ×2 (08:55→20:13)
[2017-01-06] MEDS: Sertraline 50 MG Tab PO SCH (08:55)
--- NOTE | 2017-01-06 10:55 | PCM.PN ---
- General Info Date of Service: 01/06/17 Admission Dx/Problem (Free Text): Inability to Care for Herself--Failure to thrive, S/P CVA Subjective Update: Tina is seen this morning resting comfortably in bed, finishing breakfast. States slept pretty good. Denies c/o pain/discomfort. Is here "[place] [facility] [place] [facility]" as "my can't take care of me anymore and I can't do it myself". She is s/p CVA a few years ago; on coumadin; INR 2.9 today; residual lt sided paralysis. Functional Status: Reports: Pain Controlled, Tolerating Diet, Urinating. Denies : New Symptoms - Review of Systems General: Reports: Weakness (lt sided/paralysis) HEENT: Reports: No Symptoms Pulmonary: Reports: No Symptoms. Denies: Shortness of Breath, Cough Cardiovascular: Reports: No Symptoms, Other (pacemaker). Denies: Chest Pain, Palpitations Gastrointestinal: Reports: No Symptoms Genitourinary: Reports: No Symptoms Neurological: Reports: Pre-Existing Deficit (lt sided), Weakness (lt sided) - Patient Data Vitals - Most Recent: Last Vital Signs Temp 97.9 F 01/06/17 08:22 Pulse 62 01/06/17 08:22 Resp 14 01/06/17 08:22 BP 100/70 01/06/17 08:50 Pulse Ox 91 L 01/06/17 08:22 Weight - Most Recent: 149 lb 9.6 oz I&O - Last 24 Hours: Intake & Output 01/05/17 01/06/17 01/06/17 22:59 06:59 14:59 Intake Total 550 400 120 Output Total 150 200 Balance 400 200 120 Lab Results Last 24 Hours: Laboratory Results - last 24 hr 01/06/17 Range/Units 06:20 PT 34.7 H (8.0-13.0) SECONDS INR 2.97 Med Orders - Current: Current Medications Acetaminophen (Tylenol) 650 mg PO Q4H PRN PRN Reason: Pain (Mild 1-3)/fever Last Admin: 01/05/17 17:51 Dose: 650 mg Acetaminophen (Tylenol) 325 mg PO BEDTIME [facility] Last Admin: 01/05/17 21:04 Dose: 325 mg Hydrocodone Bitart/Acetaminophen ([place] 325-5 Mg) 1 tab PO Q4H PRN PRN Reason: Pain (moderate 4-6) Albuterol/Ipratropium (Duoneb 3.0-0.5 Mg/3 Ml) 3 ml NEB Q4H PRN PRN Reason: Shortness Of Breath/wheezing Bisacodyl (Dulcolax) 5 mg PO DAILY PRN PRN Reason: Constipation Diphtheria/Tetanus/Acell Pertussis (Adacel) 0.5 ml IM .ONCE ONE Stop: 01/06/17 12:01 Docusate Sodium (Colace) 100 mg PO BID PRN PRN Reason: Constipation Ezetimibe (Zetia) 10 mg PO DAILY [facility] Last Admin: 01/06/17 08:55 Dose: 10 mg Famotidine (Pepcid) 20 mg PO BID [facility] Last Admin: 01/06/17 08:54 Dose: 20 mg Hydromorphone HCl (Dilaudid) 0.25 mg IVPUSH Q2H PRN PRN Reason: Pain (severe 7-10) Promethazine HCl 12.5 mg/ (Sodium Chloride) 50.5 mls @ 100 mls/hr IV Q6H PRN PRN Reason: Nausea/Vomiting Lorazepam (Ativan) 0.5 mg IV Q6H PRN PRN Reason: Anxiety Lorazepam (Ativan) 2 mg IVPUSH Q4H PRN PRN Reason: Seizures Magnesium Sulfate (Pharmacy To Dose - Magnesium Replacement) 1 dose .XX ASDIRECTED [facility] Metoprolol Tartrate (Lopressor) 5 mg IVPUSH Q4H PRN PRN Reason: Tachycardia Metoprolol Tartrate (Lopressor) 12.5 mg PO BID [facility] Last Admin: 01/06/17 08:55 Dose: Not Given Ondansetron HCl (Zofran) 4 mg IV Q6H PRN PRN Reason: Nausea/Vomiting Pneumococcal 13-Valent Conj Vacc (Prevnar 13) 0.5 ml IM .ONCE ONE Stop: 01/06/17 12:01 Polyethylene Glycol (Miralax) 17 gm PO DAILY PRN PRN Reason: Constipation Potassium Chloride (Pharmacy To Dose - Potassium Replacement) 1 dose .XX ASDIRECTED [facility] Senna/Docusate Sodium (Senna Plus) 1 tab PO BID PRN PRN Reason: Constipation Sertraline HCl (Zoloft) 100 mg PO DAILY [facility] Last Admin: 01/06/17 08:55 Dose: 100 mg Simvastatin (Zocor) 20 mg PO BEDTIME [facility] Last Admin: 01/05/17 21:05 Dose: 20 mg Temazepam (Restoril) 7.5 mg PO BEDTIME PRN PRN Reason: Sleep Warfarin Sodium (Coumadin) 0.5 mg PO SuMoTuThFr@1800 [facility] Last Admin: 01/05/17 17:40 Dose: 0.5 mg Warfarin Sodium (Coumadin) 1 mg PO WeSa@1800 [facility] Last Admin: 01/04/17 22:44 Dose: 1 mg Discontinued Medications Acetaminophen (Tylenol) 325 mg PO TID PRN PRN Reason: Pain Hydralazine HCl (Apresoline) 20 mg IVPUSH Q4H PRN PRN Reason: Hypertension Magnesium Sulfate 2 gm/ Premix 50 mls @ 50 mls/hr IV ONETIME ONE Stop: 01/05/17 09:59 Last Admin: 01/05/17 09:39 Dose: 50 mls/hr - Exam Quality Assessment: DVT Prophylaxis (coumadin- therapeutic) General: Alert, Oriented, Cooperative, No Acute Distress, Other (pleasant and talkative) HEENT: Pupils Equal, EOMI, Mucous Membr. Moist/[place], Other (lt sided eyelid droop/facial droop) Neck: Supple Lungs: Clear to Auscultation, Normal Respiratory Effort, Decreased Breath Sounds (bases) Cardiovascular: Regular Rate, Regular Rhythm, Murmurs (grade 2 systolic) GI/Abdominal Exam: Normal Bowel Sounds, Soft, Non-Tender (Female) Exam: Deferred Extremities: No Pedal Edema, Normal Capillary Refill, Other (left arm with paralysis and contracture of hand/fingers) Peripheral Pulses: 2+: Dorsalis Pedis (L), Dorsalis Pedis (R) Skin: Warm, Dry Neurological: Normal Speech, Normal Tone. No: Strength Equal Bilateral (lt weakness/paralysis) Psy/Mental Status: Alert, Normal Affect - Problem List & Annotations (1) Failure to thrive in adult SNOMED Code(s): 007321610 Code(s): R62.7 - ADULT FAILURE TO THRIVE Status: Chronic Priority: High Current Visit: Yes (2) Hemiplegia SNOMED Code(s): 22165344 Code(s): G81.90 - HEMIPLEGIA, UNSPECIFIED AFFECTING UNSPECIFIED SIDE Status : Chronic Priority: High Current Visit: Yes Qualifiers: Hemiplegia type: flaccid Hemiplegia etiology: cerebrovascular Cerebrovascular disease type: cerebral infarction Hemiplegia laterality: left nondominant side Qualified Code(s): G81.04 - Flaccid hemiplegia affecting left nondominant side; I63.9 - Cerebral infarction, unspecified (3) Anticoagulated on Coumadin SNOMED Code(s): 48300439 Code(s): Z51.81 - ENCOUNTER FOR THERAPEUTIC DRUG LEVEL MONITORING; Z79.01 - FPC (CURRENT) USE OF ANTICOAGULANTS Status: Chronic Priority: Medium Current Visit: Yes (4) History of CVA with residual deficit SNOMED Code(s): 000928714 Code(s): I69.30 - UNSPECIFIED SEQUELAE OF CEREBRAL INFARCTION Status: Chronic Priority: Medium Current Visit: Yes - Problem List Review Problem List Initiated/Reviewed/Updated: Yes - Plan Plan:: Assessment/Plan: Acute: Inability To Care for Self/Failure to thrive - She is crippled with lt sided paralysis due to hx/o CVA - They have children but her primary caregiver is her who is now unable to care for her - has prostate cancer and recently had radiation sees implanted; he was advised to no lifting > 20 lbs - They attempted to call 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 Code status: 1
[2017-01-06] MEDS ORDERED: Diphtheria,Pertussis(Acell),Tetanus Vaccine 0.5 ML SDV IM ONE (12:00)
[2017-01-06] MEDS ORDERED: Pneumococcal 13-Valent Conjugate Vaccine 0.5 ML Syringe IM ONE (12:00)
[2017-01-06] MEDS: Acetaminophen 325 MG Tab PO PRN (17:32)
[2017-01-06] MEDS: Simvastatin 20 MG Tab PO SCH (20:11)
[2017-01-06] MEDS: Acetaminophen 325 MG Tab PO SCH (20:12)
--- NOTE | 2017-01-07 02:02 | PCM.DCSUM1 ---
<Jorge Harris T - Last Filed: 01/07/17 02:02> Discharge Summary - Discharge Data Discharge Date: 01/07/17 Discharge Disposition: DC/Tfer to SNF 03 Condition: Good - Patient Instructions Diet: Usual Diet as Tolerated Activity: As Tolerated Driving: Do Not Drive Showering/Bathing: May Shower Notify Provider of: Increased Pain, Nausea and/or Vomiting Other/Special Instructions: - Please resume all home medications. - Resume all routine daily activity as tolerated. - Follow up with your family doctor in 1 week. - Keep follow up appointment with your oncology as scheduled - Discharge Plan Home Medications: Home Meds Ezetimibe [Zetia] 10 mg PO DAILY 12/13/13 [History] Acetaminophen [Tylenol] 325 mg PO TID PRN 09/15/15 [History] Famotidine 20 mg PO BID 09/15/15 [History] Metoprolol Tartrate 12.5 mg PO BID 09/15/15 [History] Sertraline HCl [Zoloft] 100 mg PO DAILY 09/15/15 [History] Simvastatin [Zocor] 20 mg PO BEDTIME 09/15/15 [History] Warfarin [Coumadin] 0.5 mg PO SUMOTUTHFR 09/15/15 [History] Warfarin [Coumadin] 1 mg PO WESA 09/15/15 [History] Acetaminophen [Tylenol] 325 mg PO BEDTIME 01/04/17 [History] Bisacodyl [Dulcolax] 5 mg PO DAILY PRN tablet 01/07/17 [Rx] Patient Handouts: Stroke Prevention, Uhin-yy-[id number], Warfarin: What You Need to Know, Ischemic Stroke Treated With Warfarin, [id number], Pacemaker Implantation, Care After, Atrial Fibrillation, Smli-ch-Sedu, Heartbeats (How the Heart Works) Referrals: Zach Gonzalez MD [Primary Care Provider] - - General Info Date of Service: 01/07/17 Admission Dx/Problem (Free Text: Inability to Care for Herself--Failure to thrive, S/P CVA Subjective Update: Tina is seen this morning resting comfortably in bed, finishing breakfast. States slept pretty good. Denies c/o pain/discomfort. Is here "to go to the snf" as "my can't take care of me anymore and I can't do it myself". She is s/p CVA a few years ago; on coumadin; INR 2.9 today; residual lt sided paralysis. Functional Status: Reports: Pain Controlled, Tolerating Diet, Ambulating, Urinating. Denies: New Symptoms - Patient Data Vitals - Most Recent: Last Vital Signs Temp 36.5 C 01/06/17 23:51 Pulse 57 L 01/06/17 23:51 Resp 14 01/06/17 23:51 BP 112/66 01/06/17 23:51 Pulse Ox 92 L 01/06/17 23:51 Weight - Most Recent: 149 lb I&O - Last 24 hours: Intake & Output 01/06/17 01/06/17 01/07/17 14:59 22:59 06:59 Intake Total 120 540 Output Total 300 Balance 120 240 Lab Results - Last 24 hrs: Laboratory Results - last 24 hr 01/06/17 Range/Units 06:20 PT 34.7 H (8.0-13.0) SECONDS INR 2.97 Med Orders - Current: Current Medications Acetaminophen (Tylenol) 650 mg PO Q4H PRN PRN Reason: Pain (Mild 1-3)/fever Last Admin: 01/06/17 17:32 Dose: 162.5 mg Acetaminophen (Tylenol) 325 mg PO BEDTIME [facility] Last Admin: 01/06/17 20:12 Dose: 325 mg Hydrocodone Bitart/Acetaminophen (Bath 325-5 Mg) 1 tab PO Q4H PRN PRN Reason: Pain (moderate 4-6) Albuterol/Ipratropium (Duoneb 3.0-0.5 Mg/3 Ml) 3 ml NEB Q4H PRN PRN Reason: Shortness Of Breath/wheezing Bisacodyl (Dulcolax) 5 mg PO DAILY PRN PRN Reason: Constipation Docusate Sodium (Colace) 100 mg PO BID PRN PRN Reason: Constipation Ezetimibe (Zetia) 10 mg PO DAILY [facility] Last Admin: 01/06/17 08:55 Dose: 10 mg Famotidine (Pepcid) 20 mg PO BID [facility] Last Admin: 01/06/17 20:14 Dose: 20 mg Hydromorphone HCl (Dilaudid) 0.25 mg IVPUSH Q2H PRN PRN Reason: Pain (severe 7-10) Promethazine HCl 12.5 mg/ (Sodium Chloride) 50.5 mls @ 100 mls/hr IV Q6H PRN PRN Reason: Nausea/Vomiting Lorazepam (Ativan) 0.5 mg IV Q6H PRN PRN Reason: Anxiety Lorazepam (Ativan) 2 mg IVPUSH Q4H PRN PRN Reason: Seizures Magnesium Sulfate (Pharmacy To Dose - Magnesium Replacement) 1 dose .XX ASDIRECTED [facility] Metoprolol Tartrate (Lopressor) 5 mg IVPUSH Q4H PRN PRN Reason: Tachycardia Metoprolol Tartrate (Lopressor) 12.5 mg PO BID [facility] Last Admin: 01/06/17 20:13 Dose: 12.5 mg Ondansetron HCl (Zofran) 4 mg IV Q6H PRN PRN Reason: Nausea/Vomiting Polyethylene Glycol (Miralax) 17 gm PO DAILY PRN PRN Reason: Constipation Potassium Chloride (Pharmacy To Dose - Potassium Replacement) 1 dose .XX ASDIRECTED [facility] Senna/Docusate Sodium (Senna Plus) 1 tab PO BID PRN PRN Reason: Constipation Sertraline HCl (Zoloft) 100 mg PO DAILY [facility] Last Admin: 01/06/17 08:55 Dose: 100 mg Simvastatin (Zocor) 20 mg PO BEDTIME [facility] Last Admin: 01/06/17 20:11 Dose: 20 mg Temazepam (Restoril) 7.5 mg PO BEDTIME PRN PRN Reason: Sleep Warfarin Sodium (Coumadin) 0.5 mg PO SuMoTuThFr@1800 [facility] Last Admin: 01/06/17 18:02 Dose: 0.5 mg Warfarin Sodium (Coumadin) 1 mg PO WeSa@1800 [facility] Last Admin: 01/04/17 22:44 Dose: 1 mg Discontinued Medications Acetaminophen (Tylenol) 325 mg PO TID PRN PRN Reason: Pain Diphtheria/Tetanus/Acell Pertussis (Adacel) 0.5 ml IM .ONCE ONE Stop: 01/06/17 12:01 Hydralazine HCl (Apresoline) 20 mg IVPUSH Q4H PRN PRN Reason: Hypertension Magnesium Sulfate 2 gm/ Premix 50 mls @ 50 mls/hr IV ONETIME ONE Stop: 01/05/17 09:59 Last Admin: 01/05/17 09:39 Dose: 50 mls/hr Pneumococcal 13-Valent Conj Vacc (Prevnar 13) 0.5 ml IM .ONCE ONE Stop: 01/06/17 12:01 *Q Meaningful Use (DIS) - VTE *Q VTE Criteria *Q: - Stroke *Q Stroke Criteria *Q: - AMI *Q AMI Criteria *Q: <Danyell Barakat - Last Filed: 01/07/17 10:17> Discharge Summary - Hospital Course Free Text/Narrative:: This is a 71-year-old elderly white female with past medical history of allergic rhinitis, impaired vision, atrial fibrillation on warfarin, hypertension, hyperlipidemia, status post pacemaker placement, aortic valve stenosis, GERD, urinary incontinence, chronic back pain, OA/DJD, seizure disorder, anxiety, and depression who presents to the emergency department requesting snf placement. Patient carries a history of left-sided paralysis secondary to CVA. Her is her primary caregiver at home. Unfortunately, her has been ill himself with prostate cancer. He recently undergone radiation seed implantation and was told he cannot lift more than 20 pounds. Patient has some respite care available but not for the next 3 weeks. Her family attempted to place her at [facility] but they were told she would have to come in for admission. Currently, she has no complaints. She denies any systemic signs of infections. She presents with no new neurological symptoms. The patient is being admitted for inability to care for herself and for snf placement. She is full code. Course of hospital stay was uneventful. Labs were stable, INR's were followed daily. She worked with PT/OT. She is placed and will be discharged to [facility] today with PCP, Dr. Gonzalez to continue to follow her at [facility]. She will cont with PT/OT there; recommend PCP follow up within one week of discharge and INR on Friday of this week 01/10/[address] Gonzalez. - Discharge Data Discharge Date: 01/07/17 (admit date 01/04/17) - Discharge Diagnosis/Problem(s) (1) Failure to thrive in adult SNOMED Code(s): 853064298 ICD Code: R62.7 - ADULT FAILURE TO THRIVE Status: Chronic Priority: High Current Visit: Yes (2) Hemiplegia SNOMED Code(s): 93637553 ICD Code: G81.90 - HEMIPLEGIA, UNSPECIFIED AFFECTING UNSPECIFIED SIDE Status: Chronic Priority: High Current Visit: Yes Qualifiers: Hemiplegia type: flaccid Hemiplegia etiology: cerebrovascular Cerebrovascular disease type: cerebral infarction Hemiplegia laterality: left nondominant side Qualified Code(s): G81.04 - Flaccid hemiplegia affecting left nondominant side; I63.9 - Cerebral infarction, unspecified (3) Anticoagulated on Coumadin SNOMED Code(s): 83245793 ICD Code: Z51.81 - ENCOUNTER FOR THERAPEUTIC DRUG LEVEL MONITORING; Z79.01 - CARE HOME (CURRENT) USE OF ANTICOAGULANTS Status: Chronic Priority: Medium Current Visit: Yes (4) History of CVA with residual deficit SNOMED Code(s): 026657916 ICD Code: I69.30 - UNSPECIFIED SEQUELAE OF CEREBRAL INFARCTION Status: Chronic Priority: Medium Current Visit: Yes - Patient Summary/Data Operative Procedure(s) Performed: None Complications: None Consults: None Labs Pending at D/C: None Recommended Follow-up Testing/Procedures: Follow up with PCP, Dr. Gonzalez within one week of discharge. INR on Friday01/10/17 Planned Operative Procedure(s) after DC: None Hospital Course: As above - Patient Instructions Diet: Heart Healthy Diet, Usual Diet as Tolerated Driving: Do Not Drive Showering/Bathing: May Shower Notify Provider of: Increased Pain, Nausea and/or Vomiting - Discharge Summary/Plan Comment DC Time >30 min.: Yes (40 min) - General Info Functional Status: Reports: Pain Controlled, Tolerating Diet, Urinating - Review of Systems General: Reports: Weakness (lt sided paralysis) HEENT: Reports: No Symptoms Pulmonary: Reports: No Symptoms Cardiovascular: Reports: No Symptoms Gastrointestinal: Reports: No Symptoms Neurological: Reports: Other (lt sided paralysis/lt sided facial droop/weakness) - Patient Data Vitals - Most Recent: Last Vital Signs Temp 98.1 F 01/07/17 07:26 Pulse 60 01/07/17 07:26 Resp 16 01/07/17 07:26 BP 103/58 L 01/07/17 08:07 Pulse Ox 90 L 01/07/17 07:26 I&O - Last 24 hours: Intake & Output 01/06/17 01/07/17 01/07/17 22:59 06:59 14:59 Intake Total 540 400 Output Total 300 Balance 240 400 Lab Results - Last 24 hrs: Laboratory Results - last 24 hr 01/07/17 01/07/17 01/07/17 Range/Units 06:30 06:30 06:30 WBC 5.82 (3.98-10.04) K/mm3 RBC 3.98 (3.98-5.22) M/mm3 Hgb 12.2 (11.2-15.7) gm/L Hct 38.4 (34.1-44.9) % MCV 96.5 H (79.4-94.8) fl MCH 30.7 (25.6-32.2) pg MCHC 31.8 L (32.2-35.5) g/dl RDW Std Deviation 48.7 H (36.4-46.3) fL Plt Count 247 (182-369) K/mm3 MPV 9.4 (9.4-12.3) fl Neut % (Auto) 71.1 (34.0-71.1) % Lymph % (Auto) 15.8 L (19.3-51.7) % [place] % (Auto) 7.6 (4.7-12.5) % Eos % (Auto) 4.8 (0.7-5.8) Baso % (Auto) 0.5 (0.1-1.2) % Neut # (Auto) 4.14 (1.56-6.13) K/mm3 Lymph # (Auto) 0.92 L (1.18-3.74) K/mm3 [place] # (Auto) 0.44 H (0.24-0.36) K/mm3 Eos # (Auto) 0.28 (0.04-0.36) K/mm3 Baso # (Auto) 0.03 (0.01-0.08) K/mm3 PT 32.9 H (8.0-13.0) SECONDS INR 2.82 Sodium 140 (136-145) mEq/L Potassium 4.5 (3.5-5.1) mEq/L Chloride 105 (98-107) mEq/L Carbon Dioxide 30 (21-32) mEq/L Anion Gap 9.5 (5-15) BUN 15 (7-18) mg/dL Creatinine 0.6 (0.55-1.02) mg/dL Est Cr Clr Drug Dosing 71.14 mL/min Estimated GFR (MDRD) > 60 (>60) mL/min BUN/Creatinine Ratio 25.0 H (14-18) Glucose 91 (83-115) mg/dL Calcium 8.9 (8.5-10.1) mg/dL Med Orders - Current: Current Medications Acetaminophen (Tylenol) 650 mg PO Q4H PRN PRN Reason: Pain (Mild 1-3)/fever Last Admin: 01/06/17 17:32 Dose: 162.5 mg Acetaminophen (Tylenol) 325 mg PO BEDTIME [facility] Last Admin: 01/06/17 20:12 Dose: 325 mg Hydrocodone Bitart/Acetaminophen (Bath 325-5 Mg) 1 tab PO Q4H PRN PRN Reason: Pain (moderate 4-6) Albuterol/Ipratropium (Duoneb 3.0-0.5 Mg/3 Ml) 3 ml NEB Q4H PRN PRN Reason: Shortness Of Breath/wheezing Bisacodyl (Dulcolax) 5 mg PO DAILY PRN PRN Reason: Constipation Last Admin: 01/07/17 08:04 Dose: 5 mg Docusate Sodium (Colace) 100 mg PO BID PRN PRN Reason: Constipation Ezetimibe (Zetia) 10 mg PO DAILY [facility] Last Admin: 01/07/17 08:04 Dose: 10 mg Famotidine (Pepcid) 20 mg PO BID [facility] Last Admin: 01/07/17 08:04 Dose: 20 mg Hydromorphone HCl (Dilaudid) 0.25 mg IVPUSH Q2H PRN PRN Reason: Pain (severe 7-10) Promethazine HCl 12.5 mg/ (Sodium Chloride) 50.5 mls @ 100 mls/hr IV Q6H PRN PRN Reason: Nausea/Vomiting Lorazepam (Ativan) 0.5 mg IV Q6H PRN PRN Reason: Anxiety Lorazepam (Ativan) 2 mg IVPUSH Q4H PRN PRN Reason: Seizures Magnesium Sulfate (Pharmacy To Dose - Magnesium Replacement) 1 dose .XX ASDIRECTED [facility] Metoprolol Tartrate (Lopressor) 5 mg IVPUSH Q4H PRN PRN Reason: Tachycardia Metoprolol Tartrate (Lopressor) 12.5 mg PO BID [facility] Last Admin: 01/07/17 08:07 Dose: Not Given Ondansetron HCl (Zofran) 4 mg IV Q6H PRN PRN Reason: Nausea/Vomiting Polyethylene Glycol (Miralax) 17 gm PO DAILY PRN PRN Reason: Constipation Potassium Chloride (Pharmacy To Dose - Potassium Replacement) 1 dose .XX ASDIRECTED [facility] Senna/Docusate Sodium (Senna Plus) 1 tab PO BID PRN PRN Reason: Constipation Sertraline HCl (Zoloft) 100 mg PO DAILY [facility] Last Admin: 01/07/17 08:04 Dose: 100 mg Simvastatin (Zocor) 20 mg PO BEDTIME [facility] Last Admin: 01/06/17 20:11 Dose: 20 mg Temazepam (Restoril) 7.5 mg PO BEDTIME PRN PRN Reason: Sleep Warfarin Sodium (Coumadin) 0.5 mg PO SuMoTuThFr@1800 [facility] Last Admin: 01/06/17 18:02 Dose: 0.5 mg Warfarin Sodium (Coumadin) 1 mg PO WeSa@1800 [facility] Last Admin: 01/04/17 22:44 Dose: 1 mg Discontinued Medications Acetaminophen (Tylenol) 325 mg PO TID PRN PRN Reason: Pain Diphtheria/Tetanus/Acell Pertussis (Adacel) 0.5 ml IM .ONCE ONE Stop: 01/06/17 12:01 Hydralazine HCl (Apresoline) 20 mg IVPUSH Q4H PRN PRN Reason: Hypertension Magnesium Sulfate 2 gm/ Premix 50 mls @ 50 mls/hr IV ONETIME ONE Stop: 01/05/17 09:59 Last Admin: 01/05/17 09:39 Dose: 50 mls/hr Pneumococcal 13-Valent Conj Vacc (Prevnar 13) 0.5 ml IM .ONCE ONE Stop: 01/06/17 12:01 - Exam Quality Assessment: Reports: DVT Prophylaxis (coumadin) General: Reports: Alert, Oriented, Cooperative, No Acute Distress HEENT: Reports: Pupils Equal, EOMI, Mucous Membr. Moist/[place] Neck: Reports: Supple Lungs: Reports: Clear to Auscultation, Normal Respiratory Effort Cardiovascular: Reports: Irregular Rhythm GI/Abdominal Exam: Normal Bowel Sounds, Soft, Non-Tender (Female) Exam: Deferred Rectal (Female) Exam: Deferred Extremities: Other (left sided weakness/paralysis) Neurological: Reports: Normal Speech (lt sided facial droop), Normal Tone. Denies: Strength Equal Bilateral (lt sided paresis) Psy/Mental Status: Reports: Alert, Normal Affect, Normal Mood *Q Meaningful Use (DIS) - VTE *Q VTE Criteria *Q: - Stroke *Q Stroke Criteria *Q: - AMI *Q AMI Criteria *Q:
[2017-01-07 07:43] VITALS: BP 103/58
[2017-01-07] MEDS: Sertraline 50 MG Tab PO SCH (08:04)
[2017-01-07] MEDS: Famotidine 20 MG Tab PO SCH (08:04)
[2017-01-07] MEDS: Ezetimibe 10 MG Tab PO SCH (08:04)
[2017-01-07] MEDS: Metoprolol Tartrate 25 MG Tab PO SCH (08:07)
== END 2017-01-07 13:30 | DRG 57 ==
LOC: SUPCPDRO 17:39 → JD.ED 17:39 → JD.MS 19:57
PROVIDERS: ADMIT Internal Medicine; ATTEND Internal Medicine
DX: I69.354 Hemiplegia and hemiparesis following cerebral infarction affecting left non-dominant side (principal); Z74.2 Need for assistance at home and no other household member able to render care; R79.1 Abnormal coagulation profile; R62.7 Adult failure to thrive; J30.9 Allergic rhinitis, unspecified; H54.7 Unspecified visual loss; E78.00 Pure hypercholesterolemia, unspecified; I48.91 Unspecified atrial fibrillation; Z79.01 Long term (current) use of anticoagulants; I10 Essential (primary) hypertension; E78.5 Hyperlipidemia, unspecified; Z95.0 Presence of cardiac pacemaker; I35.0 Nonrheumatic aortic (valve) stenosis; D68.51 Activated protein C resistance; K21.9 Gastro-esophageal reflux disease without esophagitis; R32 Unspecified urinary incontinence; G89.29 Other chronic pain; M54.9 Dorsalgia, unspecified; M19.90 Unspecified osteoarthritis, unspecified site; G40.909 Epilepsy, unspecified, not intractable, without status epilepticus; F32.9 Major depressive disorder, single episode, unspecified; F41.9 Anxiety disorder, unspecified; Z88.0 Allergy status to penicillin; Z88.1 Allergy status to other antibiotic agents; Z88.2 Allergy status to sulfonamides; Z88.8 Allergy status to other drugs, medicaments and biological substances; Z79.899 Other long term (current) drug therapy
CPT/HCPCS: 36415; 80048; 83735; 85025; 85610; 87641; 97161-GP; 97167-GO; 97530-GO; 97530-GP; 99222; 99231; 99239; 99283; 99284; A9270-GY; J3475

== ENCOUNTER 2017-03-25 09:44 | Emergency (ER) | payer MEDICARE, BC ==
[2017-03-25 10:11] VITALS: BP 118/82
--- NOTE | 2017-03-25 10:25 | EDM.PDOC ---
ED HPI GENERAL MEDICAL PROBLEM - General Chief Complaint: Lower Extremity Injury/Pain Stated Complaint: L FOOT INJURY Time Seen by Provider: 03/25/17 10:15 Source of Information: Reports: Patient History Limitations: Reports: No Limitations - History of Present Illness INITIAL COMMENTS - FREE TEXT/NARRATIVE: 71-year-old female presents to the ED at the request of her physician from [facility]. Concerns arose around development of a painful left foot with poor pulses. Patient has a dense left hemiparesis and is wheelchair bound and does not weight-bear on the left side. 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 Left foot did look slightly more erythematous and perhaps was slightly more cooler to touch than the other side. Pain is centered in the dorsal aspect of her foot. She states she doesn't think there is been any injuries to her foot but she is wheelchair bound and foot could get hit on objects when she makes corners through doorframes at the [facility]. She has no history of gout. Her chief complaint was right hip pain which is a chronic problem and she has a prior chronic degenerative arthritis as well as a greater trochanteric bursitis for which she receives intermittent steroid injection. Of note patient is on Coumadin and this is part of the reason she went to the clinic today. Her labs are drawn but they will not be available for multiple hours. Onset: Today Onset Date: 03/25/17 Duration: Hour(s): (Awoke with pain in her left foot.) Location: Reports: Lower Extremity, Left Quality: Reports: Ache Severity: Moderate Improves with: Reports: None Worsens with: Reports: None Context: Reports: Other (Spontaneous onset with no known trauma). 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 Left Hip Pain Score (Numeric/FACES): 8 Left Feet Pain Score (Numeric/FACES): 6 - Related Data Allergies Allergy/AdvReac Type Severity Reaction Status Date / Time cephalexin Allergy Cannot Verified 03/25/17 10:11 Remember codeine Allergy Cannot Verified 03/25/17 10:11 Remember dextromethorphan Allergy Cannot Verified 03/25/17 10:11 Remember doxycycline Allergy Cannot Verified 03/25/17 10:11 Remember guaifenesin Allergy Cannot Verified 03/25/17 10:11 Remember Penicillins Allergy Rash Verified 03/25/17 10:11 phenobarbital Allergy Cannot Verified 03/25/17 10:11 Remember sodium benzoate Allergy Hives Verified 03/25/17 10:11 Sulfa (Sulfonamide Allergy Cannot Verified 03/25/17 10:11 Antibiotics) Remember clarithromycin AdvReac Pain Verified 03/25/17 10:11 promethazine AdvReac Diarrhea Verified 03/25/17 10:11 Home Meds: Home Meds Ezetimibe [Zetia] 10 mg PO DAILY 12/13/13 [History] Acetaminophen [Tylenol] 325 mg PO TID PRN 09/15/15 [History] Famotidine 20 mg PO BID 09/15/15 [History] Metoprolol Tartrate 12.5 mg PO BID 09/15/15 [History] Sertraline HCl [Zoloft] 100 mg PO DAILY 09/15/15 [History] Simvastatin [Zocor] 20 mg PO BEDTIME 09/15/15 [History] Warfarin [Coumadin] 0.5 mg PO SUMOTUTHFRSA 09/15/15 [History] Warfarin [Coumadin] 1 mg PO WE 09/15/15 [History] Acetaminophen [Tylenol] 325 mg PO BEDTIME 01/04/17 [History] Bisacodyl [Dulcolax] 5 mg PO DAILY PRN tablet 01/07/17 [Rx] Polyvinyl Alcohol/Povidone/Pf [Refresh Classic Eye Drops] 1 drop EYEBOTH BEDTIME 03/25/17 [History] Past Medical History HEENT History: Reports: Allergic Rhinitis, Impaired Vision Cardiovascular History: Reports: Afib, Heart Murmur, High Cholesterol, Hypertension, Pacemaker, Other (See Below) Other Cardiovascular History: aortic valve stenosis, palpitations Respiratory History: Reports: Other (See Below) Other Respiratory History: aspiration pneumonia Gastrointestinal History: Reports: GERD Genitourinary History: Reports: Urinary Incontinence 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: Musculoskeletal History: Reports: Arthritis, Back Pain, Chronic, Osteoarthritis Neurological History: Reports: CVA, Seizure Other Neuro History: left sided paralysis Psychiatric History: Reports: Anxiety, Depression Other Psychiatric History: states she gets excited real easy Endocrine/Metabolic History: Reports: None Hematologic History: Reports: Other (See Below) Other Hematologic History: factor 5 leiden Immunologic History: Reports: None Oncologic (Cancer) History: Reports: None Dermatologic History: Reports: None - Past Surgical History Head Surgeries/Procedures: Reports: None HEENT Surgical History: Reports: Cataract Surgery Female Surgical History: Reports: Tubal Ligation Social & Family History - Family History Family Medical History: Noncontributory Neurological: Reports: CVA - Tobacco Use Smoking Status *Q: Never Smoker Second Hand Smoke Exposure: No - Caffeine Use Caffeine Use: Reports: Soda Other Caffeine Use: coke at least one everyday - Alcohol Use Days Per Week of Alcohol Use: 0 - Recreational Drug Use Recreational Drug Use: No - Living Situation & Occupation Living situation: Reports: , with Spouse Occupation: Retired Review of Systems - Review of Systems Review Of Systems: See Below Constitutional: Denies: Chills, Fever, Weakness, Other Eyes: Reports: Other Ears: Reports: No Symptoms Nose: Reports: No Symptoms Mouth/Throat: Reports: No Symptoms Respiratory: Reports: No Symptoms Cardiovascular: Reports: Irregular Heart Rate. Denies: Chest Pain, Edema GI/Abdominal: Reports: Other (Intermittent positive constipation) Genitourinary: Reports: Incontinence Musculoskeletal: Reports: Neck Pain, Shoulder Pain, Back Pain, Foot Pain, Joint Pain (Chronic right hip pain.) Skin: Reports: Bruising (Bruises easily) Neurological: Reports: Other (Patient is not able to walk post severe left hemiparesis from stroke. Her left hand is immobilized in a soft tissue splint to keep her fingers apart. His wheelchair or bedbound.) Psychiatric: Reports: Depression (Related to chronic illness.) ED EXAM, GENERAL - Physical Exam Exam: See Below Exam Limited By: Other (She provides a useful history her speech is not impaired.) General Appearance: Alert, WD/WN, No Apparent Distress, Other (Dense left hemiparesis appreciated.) Eye Exam: Right Eye: Normal Fundi (She appears to have a residual cataract are secondary cataract in her left eye.), Bilateral Eye: Normal Inspection, PERRL Ears: Normal External Exam Throat/Mouth: Normal Inspection, Normal Lips, Other Head: Atraumatic, Normocephalic Neck: Normal Inspection, Supple, Non-Tender, Full Range of Motion. No: Carotid Bruit, Lymphadenopathy (L), Lymphadenopathy (R) Respiratory/Chest: No Respiratory Distress, Lungs Clear, Normal Breath Sounds, No Accessory Muscle Use Cardiovascular: Systolic Murmur (She has a holosystolic stick systolic murmur heard best at the left lateral sternal border. Suspect aortic stenosis.), Other (Patient has no dorsalis pedis artery bilaterally on Doppler exam. She has good pulses to both feet on Doppler ultrasound of her posterior tibials bilaterally.) . No: Normal Peripheral Pulses Peripheral Pulses: 0: Posterior Tibial (L) (Only the posterior tibial pulses were present on Doppler but are not palpable.), Posterior Tibial (R), Dorsalis Pedis (L), Dorsalis Pedis (R) GI/Abdominal: Normal Bowel Sounds, Soft, Non-Tender, No Organomegaly Extremities: Other (Left hand is in a Styrofoam splint to separate her fingers and she has no spontaneous movement of her left upper extremity post CVA. She has a dense left-sided hemiparesis.) Neurological: Sensory/Motor Deficit, Other (Has a very dense left-sided hemiparesis.) Psychiatric: Normal Affect, Normal Mood Skin Exam: Warm, Dry, Intact, Normal Color, No Rash, Pallor (Slight pallor.) Course - Vital Signs Last Recorded V/S: Last Vital Signs Temp 36.6 C 03/25/17 10:07 Pulse 65 03/25/17 10:07 Resp 16 03/25/17 10:07 BP 118/82 03/25/17 10:07 Pulse Ox 95 03/25/17 10:07 - Orders/Labs/Meds Labs: Laboratory Tests 03/25/17 03/25/17 03/25/17 Range/Units 10:48 10:48 10:48 WBC 6.92 (3.98-10.04) K/mm3 RBC 4.11 (3.98-5.22) M/mm3 Hgb 12.8 (11.2-15.7) gm/L Hct 40.4 (34.1-44.9) % MCV 98.3 H (79.4-94.8) fl MCH 31.1 (25.6-32.2) pg MCHC 31.7 L (32.2-35.5) g/dl RDW Std Deviation 48.3 H (36.4-46.3) fL Plt Count 275 (182-369) K/mm3 MPV 9.5 (9.4-12.3) fl Neutrophils % (Manual) 76 H (40-60) % Band Neutrophils % 0 (0-10) % Lymphocytes % (Manual) 18 L (20-40) % Atypical Lymphs % 0 % Monocytes % (Manual) 4 (2-10) % Eosinophils % (Manual) 2 (0.7-5.8) % Basophils % (Manual) 0 L (0.1-1.2) Platelet Estimate Adequate RBC Morph Comment Normal PT 20.7 H (8.0-13.0) SECONDS INR 1.83 Sodium 141 (136-145) mEq/L Potassium 4.0 (3.5-5.1) mEq/L Chloride 106 (98-107) mEq/L Carbon Dioxide 30 (21-32) mEq/L Anion Gap 9.0 (5-15) BUN 21 H (7-18) mg/dL Creatinine 0.7 (0.55-1.02) mg/dL Est Cr Clr Drug Dosing 60.98 mL/min Estimated GFR (MDRD) > 60 (>60) mL/min BUN/Creatinine Ratio 30.0 H (14-18) Glucose 130 H (83-115) mg/dL Lactic Acid (0.4-2.0) mmol/L Uric Acid 3.7 (2.6-6.0) mg/dL Calcium 9.3 (8.5-10.1) mg/dL Total Bilirubin 0.4 (0.2-1.0) mg/dL AST 11 L (15-37) U/L ALT 15 (14-59) U/L Alkaline Phosphatase 100 (46-116) U/L Creatine Kinase 31 (26-192) U/L C-Reactive Protein 0.7 (<1.0) mg/dL Total Protein 7.5 (6.4-8.2) g/dl Albumin 3.2 L (3.4-5.0) g/dl Globulin 4.3 gm/dL Albumin/Globulin Ratio 0.7 L (1-2) /12/ Range/Units 10:48 WBC (3.98-10.04) K/mm3 RBC (3.98-5.22) M/mm3 Hgb (11.2-15.7) gm/L Hct (34.1-44.9) % MCV (79.4-94.8) fl MCH (25.6-32.2) pg MCHC (32.2-35.5) g/dl RDW Std Deviation (36.4-46.3) fL Plt Count (182-369) K/mm3 MPV (9.4-12.3) fl Neutrophils % (Manual) (40-60) % Band Neutrophils % (0-10) % Lymphocytes % (Manual) (20-40) % Atypical Lymphs % % Monocytes % (Manual) (2-10) % Eosinophils % (Manual) (0.7-5.8) % Basophils % (Manual) (0.1-1.2) Platelet Estimate RBC Morph Comment PT (8.0-13.0) SECONDS INR Sodium (136-145) mEq/L Potassium (3.5-5.1) mEq/L Chloride (98-107) mEq/L Carbon Dioxide (21-32) mEq/L Anion Gap (5-15) BUN (7-18) mg/dL Creatinine (0.55-1.02) mg/dL Est Cr Clr Drug Dosing mL/min Estimated GFR (MDRD) (>60) mL/min BUN/Creatinine Ratio (14-18) Glucose (83-115) mg/dL Lactic Acid 1.6 (0.4-2.0) mmol/L Uric Acid (2.6-6.0) mg/dL Calcium (8.5-10.1) mg/dL Total Bilirubin (0.2-1.0) mg/dL AST (15-37) U/L ALT (14-59) U/L Alkaline Phosphatase (46-116) U/L Creatine Kinase (26-192) U/L C-Reactive Protein (<1.0) mg/dL Total Protein (6.4-8.2) g/dl Albumin (3.4-5.0) g/dl Globulin gm/dL Albumin/Globulin Ratio (1-2) - Radiology Interpretation Free Text/Narrative:: 71-year-old female sent to the ED for evaluation of left foot pain. Concern with not ability to palpate pulses identified at the clinic and therefore she was sent to the ED for further evaluation. Doppler reveals a good strong posterior tibial pulse bilaterally but she does not have dorsalis pedis pulses bilaterally. About 10% of people have congenital absence of the artery. At any rate she does have peripheral vascular disease. Both feet are quite cool to touch the left is a little more reddened than the right. Plan will be to x-ray the foot as there is some concern of potential trauma when she is wheelchair bound. - Re-Assessments/Exams Free Text/Narrative Re-Assessment/Exam: 03/25/17 11:56 White count is 6.92. Hemoglobin is 12.8 with hematocrit of 40.4. Platelet count normal at 275,000. Differential 76% neutrophils and no bands. PT is 20.7 with an INR at 1.83 which is slightly subtherapeutic. Sodium is 141 with a potassium of 4.0. Chloride 106 bicarbonate 30. Anion gap is 9.0 BUNs 21. Creatinine is 0.7. Glucose is good at 1:30. Lactic acid is 1.6. Uric acid is 3.7. Liver function normal. Bones are extremely osteopenic as noted above. [facility] Departure - Departure Time of Disposition: 12:00 Disposition: Home, Self-Care 01 Condition: Fair Clinical Impression: Left foot pain, Peripheral vascular disease of extremity - Discharge Information Instructions: Peripheral Vascular Disease, [id number] Referrals: Zach Gonzalez MD [Primary Care Provider] - Forms: ED Department Discharge Additional Instructions: Evaluation the emergency room today in regards to left foot pain. This appears to be due to poor blood supply to the foot as you identified to have peripheral vascular disease. However there is no sign of any blockage of the arterial blood flow to the foot. There is good strong posterior tibial pulsesby Doppler ultrasound to both feet. There is absence of the dorsalis pedis pulse bilaterally on ultrasound in about 10% of patients do not have dorsalis pedis arteries. X-ray of the foot was negative for any bony injuries but shows the bones to be extremely osteopenic with some degenerative arthritic changes particularly in the toes. Uric acid level was 3.5 and is again stated diagnosis of any gout involving the foot. Pain settle down shortly after coming to the ED and therefore it's unclear whether or not there is a neurogenic or neuropathic component to the pain since it may come and go. At any rate there is no serious pathology identified today. The Coumadin time that we got in the ER was an INR of 1.83 which is slightly subtherapeutic Coumadin dose would not be changed at this time I will leave this up to primary care physician. Continue all current medications including medicines for pain as needed. The blister on the left medial great toe from a bunion is to be dressed daily and cleansed and topical bacitracin applied. All shoe wear that may be putting pressure on this bunion must be avoided.
--- NOTE | 2017-03-25 12:27 | CR ---
Left foot: Four views of the left foot were obtained. Bony structures are osteoporotic. Joint space narrowing is noted within the first MTP joint with bunion deformity. No acute fracture or dislocation is seen. Plantar spur is noted. Impression: 1. Incidental findings. Nothing acute is definitely appreciated. Nondisplaced fracture could easily be missed due to the degree of osteopenia. If patient remains symptomatic, recommend repeat study in 10-14 days. Diagnostic code #2
== END 2017-03-25 12:43 | disposition home or self-care (01) ==
LOC: JD.ED 09:44
DX: I73.9 Peripheral vascular disease, unspecified (principal); M19.90 Unspecified osteoarthritis, unspecified site; E78.00 Pure hypercholesterolemia, unspecified; I10 Essential (primary) hypertension; Z88.1 Allergy status to other antibiotic agents; Z88.5 Allergy status to narcotic agent; Z88.2 Allergy status to sulfonamides; Z88.8 Allergy status to other drugs, medicaments and biological substances; Z79.899 Other long term (current) drug therapy; Z79.01 Long term (current) use of anticoagulants
CPT/HCPCS: 36415; 73630-26-LT; 73630-LT; 80053; 82550; 83605; 84550; 85025; 85610; 86140; 99283; 99285

== ENCOUNTER 2017-12-22 19:38 | Emergency (ER) | payer MEDICARE, BC ==
[2017-12-22 20:06] VITALS: BP 124/87
--- NOTE | 2017-12-22 20:53 | CT ---
Head CT Technique: Multiple axial sections through the brain were obtained. Intravenous contrast was not utilized. Comparison: Previous head CT exam of 12/27/16. Findings: Area of encephalomalacia is again seen within the right frontal and temporal regions compatible with old infarct. Ex vacuole enlargement is again seen of the right lateral ventricle. Additional area of diminished density is noted within the posterior right parietal region compatible with old infarct. Mild diminished density is noted within the periventricular white matter which is compatible with small vessel ischemic demyelination change. No evidence of intracranial hemorrhage. No acute midline shift is seen. Bone window settings were reviewed which shows the visualized sinuses to appear clear. No acute calvarial abnormality is seen. Impression: 1. Old right-sided infarcts as noted above. 2. Other mild senescent change is seen. 3. No acute intracranial abnormality is identified. Diagnostic code #2
--- NOTE | 2017-12-22 23:31 | EDM.PDOC ---
ED HPI GENERAL MEDICAL PROBLEM - General Chief Complaint: Headache Stated Complaint: PRESSURE IN HEAD Time Seen by Provider: 12/22/17 23:21 Source of Information: Reports: Patient, Family (), RN Notes Reviewed History Limitations: Reports: No Limitations - History of Present Illness INITIAL COMMENTS - FREE TEXT/NARRATIVE: The patient states that she developed right-sided pressure in her head yesterday , 12/21/2017. It resolved earlier tonight, and currently the patient is symptom-free. The patient is concerned because she had a right-sided occlusive stroke on December 13, 2013, leaving her with a left hemiparesis and inability to ambulate, then suffered subsequent bilateral epidural/subdural hemorrhages, as recently as 09/15/2015. She is on Coumadin for paroxysmal atrial fibrillation, managed by the Coumadin unit, and she also has heterozygous Factor V Leiden mutation. The patient's PCP is Dr. Gonzalez. Right Headache Pain Score (Numeric/FACES): 6 - Related Data Allergies Allergy/AdvReac Type Severity Reaction Status Date / Time cephalexin Allergy Cannot Verified 03/25/17 10:11 Remember codeine Allergy Cannot Verified 03/25/17 10:11 Remember dextromethorphan Allergy Cannot Verified 03/25/17 10:11 Remember doxycycline Allergy Cannot Verified 03/25/17 10:11 Remember guaifenesin Allergy Cannot Verified 03/25/17 10:11 Remember Penicillins Allergy Rash Verified 03/25/17 10:11 phenobarbital Allergy Cannot Verified 03/25/17 10:11 Remember sodium benzoate Allergy Hives Verified 03/25/17 10:11 Sulfa (Sulfonamide Allergy Cannot Verified 03/25/17 10:11 Antibiotics) Remember clarithromycin AdvReac Pain Verified 03/25/17 10:11 promethazine AdvReac Diarrhea Verified 03/25/17 10:11 Home Meds: Home Meds Ezetimibe [Zetia] 10 mg PO DAILY 12/13/13 [History] Acetaminophen [Tylenol] 325 mg PO TID PRN 09/15/15 [History] Famotidine 20 mg PO BID 09/15/15 [History] Metoprolol Tartrate 12.5 mg PO BID 09/15/15 [History] Sertraline HCl [Zoloft] 100 mg PO DAILY 09/15/15 [History] Simvastatin [Zocor] 20 mg PO BEDTIME 09/15/15 [History] Warfarin [Coumadin] 0.5 mg PO SUMOWETHSA 09/15/15 [History] Warfarin [Coumadin] 1 mg PO TUFR 09/15/15 [History] Acetaminophen [Tylenol] 325 mg PO BEDTIME 01/04/17 [History] Bisacodyl [Dulcolax] 5 mg PO DAILY PRN tablet 01/07/17 [Rx] Polyvinyl Alcohol/Povidone/Pf [Refresh Classic Eye Drops] 1 drop EYEBOTH BEDTIME 03/25/17 [History] Celecoxib 200 mg PO DAILY 12/22/17 [History] Past Medical History HEENT History: Reports: Allergic Rhinitis, Impaired Vision Cardiovascular History: Reports: Afib (paroxysmal), Arrhythmia (tachy-edie syndrome), High Cholesterol, Hypertension, Other (See Below) (Aortic stenosis) Gastrointestinal History: Reports: GERD Genitourinary History: Reports: Urinary Incontinence 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: Musculoskeletal History: Reports: Back Pain, Chronic, Osteoarthritis Neurological History: Reports: CVA (occlusive, 12/13/2013, with resultant left hemiparesis, followed by [id number] bilateral epidural/subdural hemorrhages), Seizure Psychiatric History: Reports: Anxiety, Depression Hematologic History: Reports: Anticoagulation Therapy (coumdin), Other (See Below) (Heterozygous Factor V Leiden mutation) - Past Surgical History HEENT Surgical History: Reports: Cataract Surgery (10/17/2014) Cardiovascular Surgical History: Reports: Pacer (12/29/2013, for tachy-edie syndrome) Female Surgical History: Reports: Tubal Ligation Social & Family History - Family History Family Medical History: Noncontributory Neurological: Reports: CVA - Tobacco Use Smoking Status *Q: Never Smoker - Caffeine Use Caffeine Use: Reports: Soda Other Caffeine Use: coke at least one everyday - Alcohol Use Alcohol Use History: No - Recreational Drug Use Recreational Drug Use: No - Living Situation & Occupation Living situation: Reports: , with Spouse Occupation: Retired ED ROS GENERAL - Review of Systems Review Of Systems: ROS reveals no pertinent complaints other than HPI. - Physical Exam Exam: See Below Exam Limited By: No Limitations General Appearance: Alert, WD/WN, No Apparent Distress Eye Exam: Bilateral Eye: Normal Inspection Ears: Normal External Exam, Hearing Grossly Normal Nose: Normal Inspection Throat/Mouth: Normal Inspection, Normal Lips, Normal Voice, No Airway Compromise Head Exam: Atraumatic, Normocephalic Neck: Normal Inspection Respiratory/Chest: No Respiratory Distress, Lungs Clear, Normal Breath Sounds, No Accessory Muscle Use Cardiovascular: Normal Peripheral Pulses, Regular Rate, Rhythm, No Edema, No Gallop, No JVD, No Rub, Systolic Murmur (Grade 3/6, heard best at apex, c/w MR) GI/Abdominal: Normal Bowel Sounds, Soft, Non-Tender, No Organomegaly, No Distention, No Abnormal Bruit, No Mass (Female) Exam: Deferred Rectal (Female) Exam: Deferred Neuro Exam (Abbreviated): Alert, Oriented, Other (Dense left hemiparesis, including the left side of her face) Extremities: Normal Capillary Refill Psychiatric: Normal Affect Skin Exam: Warm, Dry, Intact, Normal Color, No Rash Course - Vital Signs Last Recorded V/S: Last Vital Signs Temp 2.7 C L 12/22/17 20:03 Pulse 62 12/22/17 20:03 Resp 20 12/22/17 20:03 BP 124/87 12/22/17 20:03 Pulse Ox 92 L 12/22/17 20:03 - Re-Assessments/Exams Free Text/Narrative Re-Assessment/Exam: 12/22/17 23:31 CT of the head without contrast is read by Dr. Dill as: 1. Old right-sided infarcts as noted above. 2. Other mild senescent change is seen. 3. No acute intracranial abnormality is identified. 12/22/17 23:39 As above, the patient states that her headache resolved earlier tonight, and, as above, the CT scan of her head is unremarkable. No further evaluation or treatment is needed. I will discharge her home. Departure - Departure Time of Disposition: 23:40 Disposition: Home, Self-Care 01 Condition: Good Clinical Impression: Headache Qualifiers: Headache type: unspecified Headache chronicity pattern: acute headache Intractability: not intractable Qualified Code(s): R51 - Headache - Discharge Information *PRESCRIPTION DRUG MONITORING PROGRAM REVIEWED*: Not Applicable *COPY OF PRESCRIPTION DRUG MONITORING REPORT IN PATIENT YAYA: Not Applicable Instructions: General Headache Without Cause Referrals: Zach Gonzalez MD [Primary Care Provider] - Forms: ED Department Discharge Additional Instructions: You were seen in the emergency room for right-sided head pressure since 12/21/2017. Your headache resolved earlier tonight. Workup in the ER included a CT scan of your head, which found no new changes. Follow-up with your PCP, Dr. Gonzalez, as needed. If any other problems, please do not hesitate to return to the ER.
== END 2017-12-22 23:50 | disposition home or self-care (01) ==
LOC: JD.ED 19:38
DX: R51 Headache (principal); Z88.0 Allergy status to penicillin; Z88.2 Allergy status to sulfonamides; Z88.1 Allergy status to other antibiotic agents; Z79.01 Long term (current) use of anticoagulants; Z88.5 Allergy status to narcotic agent
CPT/HCPCS: 70450; 70450-26; 99284-25

== ENCOUNTER 2018-12-06 17:50 | Observation (INO) | payer MEDICARE, MEDICAID ==
--- NOTE | 2018-12-06 19:36 | EDM.PDOC ---
ED HPI GENERAL MEDICAL PROBLEM - General Chief Complaint: General Stated Complaint: NEEDS EVALUATED FOR LONG-TERM Time Seen by Provider: 12/06/18 19:05 Source of Information: Reports: Patient, Family (Daughter) History Limitations: Reports: No Limitations - History of Present Illness INITIAL COMMENTS - FREE TEXT/NARRATIVE: The patient suffered a stroke in 2013, and is left with a left hemiparesis. She is cared for at home by her , however, the patient's was seen ( by me) in this ED last night, and was transferred to [facility] early this morning. As a result, there was no one to take care of the patient. Our ED director went to the patient's house and took care of her for a few hours this morning, until the patient's daughter arrived, having driven from [place], [place]. the patient's daughter is the patient's power of city attorney, however, she does not know how to care for the patient. She had been told in the past that in order to get a patient into a correction, they first need to be brought to the ED, therefore the patient's daughter has now brought the patient here to have her placed into a correction. The plan would be for the patient to stay in the correction, not just for the few days that the patient's is expected to be at [facility], but beyond that, because the patient's will be requiring orthopedic surgery soon. The patient would therefore remain in the correction until the patient's has recovered from that surgery. The patient states that she takes medications twice a day, but she was not given her AM medicines this morning. No recent illnesses, such as fever, chills, cough, chest discomfort, palpitations, nausea, vomiting, constipation, diarrhea, abdominal pain, recent weight gain or weight loss, bloody bowel movements, black bowel movements, joint aches, headaches, or rashes. The patient's PCP is Dr. Zach Gonzalez. The patient's Cardiology contact is Vee Wolff NP, at [facility]. - Related Data Allergies Allergy/AdvReac Type Severity Reaction Status Date / Time cephalexin Allergy Cannot Verified 03/25/17 10:11 Remember codeine Allergy Cannot Verified 03/25/17 10:11 Remember dextromethorphan Allergy Cannot Verified 03/25/17 10:11 Remember doxycycline Allergy Cannot Verified 03/25/17 10:11 Remember guaifenesin Allergy Cannot Verified 03/25/17 10:11 Remember Penicillins Allergy Rash Verified 03/25/17 10:11 phenobarbital Allergy Cannot Verified 03/25/17 10:11 Remember sodium benzoate Allergy Hives Verified 03/25/17 10:11 Sulfa (Sulfonamide Allergy Cannot Verified 03/25/17 10:11 Antibiotics) Remember clarithromycin AdvReac Pain Verified 03/25/17 10:11 promethazine AdvReac Diarrhea Verified 03/25/17 10:11 Home Meds: Home Meds Ezetimibe [Zetia] 10 mg PO DAILY 12/13/13 [History] Acetaminophen [Tylenol] 325 mg PO TID PRN 09/15/15 [History] Famotidine 20 mg PO BID 09/15/15 [History] Metoprolol Tartrate 12.5 mg PO BID 09/15/15 [History] Sertraline HCl [Zoloft] 100 mg PO DAILY 09/15/15 [History] Warfarin [Coumadin] 0.5 mg PO SUMOWETHSA 09/15/15 [History] Warfarin [Coumadin] 1 mg PO TUFR 09/15/15 [History] Acetaminophen [Tylenol] 325 mg PO BEDTIME 01/04/17 [History] Furosemide [Lasix] 20 mg PO DAILY 12/06/18 [History] Propylene Glycol [Systane Complete] 1 drop TOP QID 12/06/18 [History] Rosuvastatin [Crestor] 10 mg PO DAILY 12/06/18 [History] Past Medical History HEENT History: Reports: Allergic Rhinitis, Impaired Vision Cardiovascular History: Reports: Afib (paroxysmal), Arrhythmia (tachy-edie syndrome), High Cholesterol, Hypertension, Other (See Below) (Aortic stenosis) Gastrointestinal History: Reports: GERD Genitourinary History: Reports: Urinary Incontinence 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 [id number] bilateral epidural and SDH.), Seizure Psychiatric History: Reports: Anxiety, Depression Hematologic History: Reports: Anticoagulation Therapy (coumadin), Other (See Below) (Factor V Leiden deficiency) - Past Surgical History HEENT Surgical History: Reports: Cataract Surgery (bilateral) Cardiovascular Surgical History: Reports: Pacer (12/29/2013) Female Surgical History: Reports: Tubal Ligation (bilateral) Social & Family History - Family History Family Medical History: Noncontributory Neurological: Reports: CVA - Tobacco Use Smoking Status *Q: Never Smoker - Caffeine Use Caffeine Use: Reports: Soda Other Caffeine Use: coke at least one everyday - Alcohol Use Alcohol Use History: No - Recreational Drug Use Recreational Drug Use: No - Living Situation & Occupation Living situation: Reports: , with Spouse Occupation: Retired ED ROS GENERAL - Review of Systems Review Of Systems: ROS reveals no pertinent complaints other than HPI. ED EXAM, GENERAL - Physical Exam Exam: See Below Exam Limited By: No Limitations General Appearance: Alert, WD/WN, No Apparent Distress Eye Exam: Bilateral Eye: EOMI, Normal Inspection Ears: Normal External Exam, Hearing Grossly Normal Nose: Normal Inspection Throat/Mouth: Normal Inspection, Normal Lips, Normal Voice, No Airway Compromise Head: Atraumatic, Normocephalic Neck: Limited Range of Motion Respiratory/Chest: No Respiratory Distress, Lungs Clear, Normal Breath Sounds, No Accessory Muscle Use Cardiovascular: Normal Peripheral Pulses, Regular Rate, Rhythm, No Gallop, No JVD, No Rub, Systolic Murmur (holosystolic, c/w ) Peripheral Pulses: 4+: Radial (L), Radial (R) GI/Abdominal: Normal Bowel Sounds, Soft, Non-Tender, No Organomegaly, No Distention, No Abnormal Bruit, No Mass (Female) Exam: Deferred Rectal (Female) Exam: Deferred Extremities: Normal Inspection, Normal Range of Motion, Normal Capillary Refill , Other (Trace BLE edema) Neurological: Alert, Oriented, Normal Cognition, Other (Left hemiparesis) Psychiatric: Normal Affect Skin Exam: Warm, Dry, Intact, Normal Color, No Rash Course - Vital Signs Last Recorded V/S: Last Vital Signs Temp 37.8 C 12/06/18 18:14 Pulse 78 12/06/18 18:14 Resp 20 12/06/18 18:14 BP 109/74 12/06/18 18:14 Pulse Ox 87 L 12/06/18 18:14 - Re-Assessments/Exams Free Text/Narrative Re-Assessment/Exam: 12/06/18 19:[address] Harris at 19:31. Provided both the patient and her daughter are fully aware that the patient will be observation, and, therefore, none of her medications or other treatments will be paid for by Medicare, and that the eventual correction that she goes to will not be paid for by Medicare , he is willing to accept the patient. I had had that conversation with the patient and her daughter prior to calling Dr. Harris, and they agreed. Departure - Departure Time of Disposition: 19:39 Disposition: Refer to Observation Condition: Good Clinical Impression: Encounter for examination for admission to correction - Discharge Information *PRESCRIPTION DRUG MONITORING PROGRAM REVIEWED*: Not Applicable *COPY OF PRESCRIPTION DRUG MONITORING REPORT IN PATIENT YAYA: Not Applicable Referrals: Zach Gonzalez MD [Primary Care Provider] - Vee Wolff NP [Ordering Only Provider] -
--- NOTE | 2018-12-06 22:11 | PCM.HP.2 ---
H&P History of Present Illness - General Date of Service: 12/06/18 Admit Problem/Dx: Admission Diagnosis/Problem Admission Diagnosis/Problem Self-care deficit in patient living alone Source of Information: Patient, Family, Old Records, Provider, RN Notes Reviewed , Significant Other History Limitations: Reports: Physical Impairment - History of Present Illness Initial Comments - Free Text/Narative: This is a 73 yo elderly white female with past medical hx/o R, Impaired Vision, PAF, Hx/o Tachy-Michael Syndrome, HLD, HTN, GERD, Urinary Incontinence, OA/DJD, Back Pain, CVA w/ Left side Hemiparesis, Seizure Disorder, Factor V Leiden Deficiency, Anxiety and Depression who comes in for inability to care for herself. She has chronic debility due to hx/o CVA with left sided hemiparesis in 2003. She is dependent with her for activities of daily living. Unfortunately, her is currently hospitalized in [place] and will be requiring bone surgery soon. Her daughter who lives out of state is temporarily caring for her. She has no acute complaints or issues. She comes to the hospital to seek help for home care. - Related Data Allergies/Adverse Reactions: Allergies Allergy/AdvReac Type Severity Reaction Status Date / Time cephalexin Allergy Cannot Verified 03/25/17 10:11 Remember codeine Allergy Cannot Verified 03/25/17 10:11 Remember dextromethorphan Allergy Cannot Verified 03/25/17 10:11 Remember doxycycline Allergy Cannot Verified 03/25/17 10:11 Remember guaifenesin Allergy Cannot Verified 03/25/17 10:11 Remember Penicillins Allergy Rash Verified 03/25/17 10:11 phenobarbital Allergy Cannot Verified 03/25/17 10:11 Remember sodium benzoate Allergy Hives Verified 03/25/17 10:11 Sulfa (Sulfonamide Allergy Cannot Verified 03/25/17 10:11 Antibiotics) Remember clarithromycin AdvReac Pain Verified 03/25/17 10:11 promethazine AdvReac Diarrhea Verified 03/25/17 10:11 Home Medications: Home Meds Ezetimibe [Zetia] 10 mg PO DAILY 12/13/13 [History] Famotidine 20 mg PO BID 09/15/15 [History] Metoprolol Tartrate 12.5 mg PO BID 09/15/15 [History] Sertraline HCl [Zoloft] 100 mg PO DAILY 09/15/15 [History] Warfarin [Coumadin] 0.5 mg PO SUMOWETHSA 09/15/15 [History] Warfarin [Coumadin] 1 mg PO TUFR 09/15/15 [History] Furosemide [Lasix] 20 mg PO DAILY 12/06/18 [History] Propylene Glycol [Systane Complete] 1 drop TOP QID 12/06/18 [History] Rosuvastatin [Crestor] 10 mg PO DAILY 12/06/18 [History] Past Medical History HEENT History: Reports: Allergic Rhinitis, Impaired Vision Cardiovascular History: Reports: Afib, Arrhythmia, Heart Murmur, High Cholesterol, Hypertension, Other (See Below) Other Cardiovascular History: aortic valve stenosis, palpitations Respiratory History: Reports: Other (See Below) Other Respiratory History: aspiration pneumonia Gastrointestinal History: Reports: GERD, Hemorrhoids Genitourinary History: Reports: Urinary Incontinence 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: Musculoskeletal History: Reports: Back Pain, Chronic, Osteoarthritis Neurological History: Reports: CVA, Seizure Other Neuro History: left sided paralysis Psychiatric History: Reports: Anxiety, Depression Other Psychiatric History: states she gets excited real easy Endocrine/Metabolic History: Reports: None Hematologic History: Reports: Anticoagulation Therapy, Other (See Below) Other Hematologic History: factor 5 leiden Immunologic History: Reports: None Oncologic (Cancer) History: Reports: None Dermatologic History: Reports: None Other Dermatologic History: dry, flaking scalp - Past Surgical History Head Surgeries/Procedures: Reports: None HEENT Surgical History: Reports: Cataract Surgery Cardiovascular Surgical History: Reports: Pacer Female Surgical History: Reports: Tubal Ligation Other Musculoskeletal Surgeries/Procedures:: L side completely paralyzed Social & Family History - Family History Family Medical History: Noncontributory Neurological: Reports: CVA - Tobacco Use Smoking Status *Q: Never Smoker - Caffeine Use Caffeine Use: Reports: Soda Other Caffeine Use: 2-3 soda/day - Recreational Drug Use Recreational Drug Use: No - Living Situation & Occupation Living situation: Reports: , with Spouse Occupation: Retired H&P Review of Systems - Review of Systems: Review Of Systems: ROS reveals no pertinent complaints other than HPI. Exam - Exam Exam: See Below - Vital Signs Vital Signs: Last Vital Signs Temp 37.8 C 12/06/18 18:14 Pulse 78 08/25/19 18:14 Resp 20 12/06/18 18:14 BP 109/74 12/06/18 18:14 Pulse Ox 87 L 12/06/18 18:14 Weight: 66.315 kg - Exam General: Alert, Oriented, Cooperative HEENT: Conjunctiva Clear, EACs Clear, EOMI, Hearing Intact, Mucosa Moist & [place] , Nares Patent, Normal Nasal Septum, Posterior Pharynx Clear, Pupils Equal, Pupils Reactive, Other (Baseline: facial asymmetry and facial droop ) Neck: Supple, Trachea Midline Lungs: Normal Respiratory Effort, Decreased Breath Sounds Cardiovascular: Irregular Rhythm GI/Abdominal Exam: Normal Bowel Sounds, Soft, Non-Tender, No Organomegaly, No Distention, No Abnormal Bruit (Female) Exam: Deferred Rectal (Female) Exam: Deferred Back Exam: Normal Inspection, Decreased Range of Motion Extremities: Normal Inspection, Normal Range of Motion, Non-Tender, No Pedal Edema, Normal Capillary Refill Peripheral Pulses: 2+: Dorsalis Pedis (L), Dorsalis Pedis (R) Skin: Warm, Dry, Intact Neuro Extensive - Mental Status: Oriented x3, Normal Cognition Neuro Extensive - Motor, Sensory, Reflexes: Abnormal Gait, Other (baseline: left sided paralysis), Motor/Sensory Deficits. No: CN II-XII Intact Psychiatric: Alert, Normal Affect, Normal Mood - Patient Data Result Diagrams: 12/07/18 01:04 12/07/18 01:04 Problem List Initiated/Reviewed/Updated: Yes Orders Last 24hrs: Active Orders 24 hr Category Date Time Status Patient Status [ADT] Routine ADT 12/06/18 20:35 Active Assessment/Plan Comment:: Assessment: Acute: Inability to Care for Herself - is the primary caregiver and is currently hospitalized in [place] - Has chronic debility due to hx/o CVA with left sided deficits in - She is not able to care for herself - Daughter si from out of town to temporarily be with her - Need help with home care or possible placement Chronic: AR, Impaired Vision, PAF, Hx/o Tachy-Michael Syndrome, HLD, HTN, GERD, Urinary Incontinence, OA/DJD, Back Pain, CVA w/ Left side Hemiparesis, Seizure Disorder, Factor V Leiden Deficiency, Anxiety and Depression Plan: Admit to the floor Resume Home Medications PT/OT to assess and treat DVT/GI Prophylaxis SW/CM for placement Fall Precautions Code status: CPR only Additional Orders as above Prognosis good - Mortality Measure Prognosis:: Good
[2018-12-07] MEDS ORDERED: HYDROmorphone 0.5 MG/0.5 ML Syringe IVPUSH PRN (00:21)
[2018-12-07] MEDS ORDERED: Acetaminophen 325 MG Tab PO PRN (00:21)
[2018-12-07] MEDS ORDERED: Promethazine 6.25 MG in Sodium Chloride 0.9% 50 ML IV PRN (00:21)
[2018-12-07] MEDS ORDERED: Temazepam 7.5 MG Cap PO PRN (00:21)
[2018-12-07] MEDS ORDERED: LORazepam 2 MG/ML SDV IV PRN (00:21)
[2018-12-07] MEDS ORDERED: Albuterol/Ipratropium 3.0-0.5 MG/3 ML Neb Soln NEB PRN (00:21)
[2018-12-07] MEDS ORDERED: Acetaminophen/HYDROcodone 325-5 MG Tab PO PRN (00:21)
[2018-12-07] MEDS ORDERED: Polyethylene Glycol 3350 Powder 17 GM Packet PO PRN (00:21)
[2018-12-07] MEDS ORDERED: Docusate Sodium 100 MG Cap PO PRN (00:21)
[2018-12-07] MEDS ORDERED: Ondansetron 4 MG/2 ML SDV IV PRN (00:21)
[2018-12-07] MEDS ORDERED: Bisacodyl 5 MG Tab PO PRN (00:21)
[2018-12-07] MEDS ORDERED: WARFARIN 0.5 MG PO SCH (00:30)
[2018-12-07] MEDS: FUROSEMIDE 20 MG PO SCH (09:32)
[2018-12-07] MEDS: EZETIMIBE 10 MG PO SCH (09:32)
[2018-12-07] MEDS: FAMOTIDINE 20 MG PO SCH ×2 (09:32→20:36)
[2018-12-07] MEDS: METOPROLOL TARTRATE 12.5 MG PO SCH ×2 (09:33→20:36)
[2018-12-07] MEDS: SERTRALINE 100 MG PO SCH (09:34)
[2018-12-07] MEDS: PROPYLENE GLYCOL EYEBOTH SCH ×4 (09:34→20:34)
[2018-12-07] MEDS: Rosuvastatin 10 MG **PTOM PO SCH (09:34)
[2018-12-07] MEDS ORDERED: Warfarin Sliding Scale PO SCH (18:00)
[2018-12-07] MEDS: Nystatin Topical Powder 15 GM Bottle TOP PRN (20:32)
--- NOTE | 2018-12-07 22:30 | PCM.PN ---
- General Info Date of Service: 12/07/18 Admission Dx/Problem (Free Text): Admission Diagnosis/Problem Admission Diagnosis/Problem Self-care deficit in patient living alone Subjective Update: Follow Up Functional Status: Reports: Pain Controlled - Review of Systems General: Denies: Fever, Chills HEENT: Reports: No Symptoms Pulmonary: Denies: Shortness of Breath Cardiovascular: Denies: Chest Pain, Dyspnea on Exertion, Lightheadedness Gastrointestinal: Denies: Abdominal Pain, Nausea, Vomiting Genitourinary: Reports: No Symptoms Musculoskeletal: Reports: No Symptoms Skin: Reports: No Symptoms Neurological: Reports: Difficulty Walking, Gait Disturbance Psychiatric: Denies: Depression, Anxiety, Agitation, Hallucinations Systems Review Comment:: She had an uneventful night. She is doing relatively well and no complaints. - Patient Data Vitals - Most Recent: Last Vital Signs Temp 37.2 C 12/07/18 20:01 Pulse 59 L 12/07/18 20:01 Resp 18 12/07/18 20:01 BP 119/67 12/07/18 20:01 Pulse Ox 100 12/07/18 20:01 Weight - Most Recent: 66.723 kg I&O - Last 24 Hours: Intake & Output 12/07/18 12/07/18 12/07/18 06:59 14:59 22:59 Intake Total 460 0 Output Total 300 Balance 160 0 Lab Results Last 24 Hours: Laboratory Results - last 24 hr 12/07/18 12/07/18 12/07/18 Range/Units 01:04 01:04 01:04 WBC 7.20 (3.98-10.04) K/mm3 RBC 3.27 L (3.98-5.22) M/mm3 Hgb 10.1 L D (11.2-15.7) gm/L Hct 33.0 L (34.1-44.9) % MCV 100.9 H (79.4-94.8) fl MCH 30.9 (25.6-32.2) pg MCHC 30.6 L (32.2-35.5) g/dl RDW Std Deviation 46.9 H (36.4-46.3) fL Plt Count 207 (182-369) K/mm3 MPV 9.1 L (9.4-12.3) fl Neut % (Auto) 74.5 H (34.0-71.1) % Lymph % (Auto) 14.0 L (19.3-51.7) % Baker % (Auto) 7.9 (4.7-12.5) % Eos % (Auto) 3.3 (0.7-5.8) Baso % (Auto) 0.3 (0.1-1.2) % Neut # (Auto) 5.36 (1.56-6.13) K/mm3 Lymph # (Auto) 1.01 L (1.18-3.74) K/mm3 Baker # (Auto) 0.57 H (0.24-0.36) K/mm3 Eos # (Auto) 0.24 (0.04-0.36) K/mm3 Baso # (Auto) 0.02 (0.01-0.08) K/mm3 PT 31.9 H (9.7-12.0) SECONDS INR 3.12 Sodium 143 (136-145) mEq/L Potassium 4.2 (3.5-5.1) mEq/L Chloride 104 (98-107) mEq/L Carbon Dioxide 34 H (21-32) mEq/L Anion Gap 9.2 (5-15) BUN 17 (7-18) mg/dL Creatinine 0.7 (0.55-1.02) mg/dL Est Cr Clr Drug Dosing 59.21 mL/min Estimated GFR (MDRD) > 60 (>60) mL/min BUN/Creatinine Ratio 24.3 H (14-18) Glucose 104 (83-115) mg/dL Calcium 8.3 L (8.5-10.1) mg/dL Magnesium 2.1 (1.8-2.4) mg/dl Med Orders - Current: Current Medications Acetaminophen (Tylenol) 650 mg PO Q4H PRN PRN Reason: Pain (Mild 1-3)/fever Hydrocodone Bitart/Acetaminophen ([place] 325-5 Mg) 1 tab PO Q4H PRN PRN Reason: Pain (moderate 4-6) Albuterol/Ipratropium (Duoneb 3.0-0.5 Mg/3 Ml) 3 ml NEB Q4H PRN PRN Reason: Shortness Of Breath/wheezing Bisacodyl (Dulcolax) 5 mg PO DAILY PRN PRN Reason: Constipation Docusate Sodium (Colace) 100 mg PO BID PRN PRN Reason: Constipation Hydromorphone HCl (Dilaudid) 0.25 mg IVPUSH Q2H PRN PRN Reason: Pain (severe 7-10) Promethazine HCl 6.25 mg/ (Sodium Chloride) 50.25 mls @ 100 mls/hr IV Q6H PRN PRN Reason: Nausea/Vomiting Lorazepam (Ativan) 0.25 mg IV Q6H PRN PRN Reason: Anxiety Nystatin (Nystop) 0 gm TOP QID PRN PRN Reason: groin excoriation Last Admin: 12/07/18 20:32 Dose: 1 applic Ondansetron HCl (Zofran) 4 mg IV Q6H PRN PRN Reason: Nausea/Vomiting Ezetimibe [Zetia] 10 (Mg Ptom) 0 each PO DAILY [facility] Last Admin: 12/07/18 09:32 Dose: 1 each Famotidine 20 Mg (Ptom) 0 each PO BID [facility] Last Admin: 12/07/18 20:36 Dose: 1 each Furosemide [Lasix] (20 Mg Ptom) 0 each PO DAILY [facility] Last Admin: 12/07/18 09:32 Dose: 1 each Metoprolol Tartrate (12.5 Mg Ptom) 0 each PO BID [facility] Last Admin: 12/07/18 20:36 Dose: 1 each Propylene Glycol [ Systane Complete] Ptom 0 each EYEBOTH QID [facility] Last Admin: 12/07/18 20:34 Dose: 1 each Rosuvastatin 10 Mg * (*Ptom) 0 each PO DAILY [facility] Last Admin: 12/07/18 09:34 Dose: 1 each Sertraline 100 Mg (Ptom) 0 each PO DAILY [facility] Last Admin: 12/07/18 09:34 Dose: 1 each Polyethylene Glycol (Miralax) 17 gm PO DAILY PRN PRN Reason: Constipation Senna/Docusate Sodium (Senna Plus) 1 tab PO BID PRN PRN Reason: Constipation Temazepam (Restoril) 7.5 mg PO BEDTIME PRN PRN Reason: Sleep Warfarin Sodium (Pharmacy To Dose - Warfarin) 0 dose PO ASDIRECTED PRN PRN Reason: RX TO DOSE WARFARIN Warfarin Sodium (Pharmacy To Dose - Warfarin) 1 dose .XX ASDIRECTED [facility] Discontinued Medications Non-Formulary Medication (Warfarin) 1 mg PO TUFR [facility] Non-Formulary Medication (Warfarin [Coumadin]) 0.5 mg PO SUMOWETHSA [facility] Warfarin Sodium (Coumadin Sliding Scale) 0 each PO QPM [facility] Stop: 12/07/18 18:01 Last Admin: 12/07/18 18:18 Dose: Not Given - Exam General: Alert, Oriented, Cooperative HEENT: Pupils Equal, Pupils Reactive, EOMI, Mucous Membr. Moist/[place] Neck: Supple Lungs: Normal Respiratory Effort, Decreased Breath Sounds Cardiovascular: Irregular Rhythm GI/Abdominal Exam: Normal Bowel Sounds, Soft, Non-Tender, No Organomegaly, No Distention, No Abnormal Bruit, No Mass (Female) Exam: Deferred Back Exam: Normal Inspection, Decreased Range of Motion Extremities: Normal Inspection, Normal Range of Motion, Non-Tender, No Pedal Edema, Normal Capillary Refill, Other (left lower extremity atonic) Peripheral Pulses: 2+: Posterior Tibial (L), Posterior Tibial (R), Dorsalis Pedis (L), Dorsalis Pedis (R) Skin: Warm, Dry, Intact Neurological: No New Focal Deficit, Other ([place] left sided hemiparesis, contracted left arm, facial asymmetry and facial droop). No: Normal Gait Psy/Mental Status: Alert, Normal Affect, Normal Mood - Problem List Review Problem List Initiated/Reviewed/Updated: Yes - My Orders Last 24 Hours: My Active Orders 12/06/18 22:45 Resuscitation Status Routine 12/07/18 00:21 Height and Weight [RC] 04 Intake and Output [RC] QSHIFT VTE/DVT Education [RC] , Vital Signs [RC] Q4HR Consult to Case Management/Corporate Secretary [CONS] Routine Consult to Spiritual Care [CONS] Routine OT Evaluation and Treatment [CONS] Routine PT Evaluation and Treatment [CONS] Routine Acetaminophen [Tylenol] 650 mg PO Q4H PRN Acetaminophen/HYDROcodone [[place] 325-5 MG] 1 tab PO Q4H PRN Albuterol/Ipratropium [DuoNeb 3.0-0.5 MG/3 ML] 3 ml NEB Q4H PRN Bisacodyl [Dulcolax] 5 mg PO DAILY PRN Docusate Sodium [Colace] 100 mg PO BID PRN Docusate Sodium/Sennosides [Senna Plus] 1 tab PO BID PRN HYDROmorphone [Dilaudid] 0.25 mg IVPUSH Q2H PRN LORazepam [Ativan] 0.25 mg IV Q6H PRN Ondansetron [Zofran] 4 mg IV Q6H PRN Polyethylene Glycol 3350 [MiraLAX] 17 gm PO DAILY PRN Promethazine [Phenergan] 6.25 mg Sodium Chloride 0.9% [Normal Saline] 50 ml IV Q6H Temazepam [Restoril] 7.5 mg PO BEDTIME PRN 12/07/18 00:22 RT Aerosol Therapy [RC] .PRN 12/07/18 09:00 Patient's Own Medication [Ptom] 0 each EYEBOTH QID Patient's Own Medication [Ptom] 0 each PO BID Patient's Own Medication [Ptom] 0 each PO BID Patient's Own Medication [Ptom] 0 each PO DAILY Patient's Own Medication [Ptom] 0 each PO DAILY Patient's Own Medication [Ptom] 0 each PO DAILY Patient's Own Medication [Ptom] 0 each PO DAILY 12/07/18 13:06 Warfarin Pharmacy to Dose [Pharmacy to Dose - Warfarin] 0 dose PO ASDIRECTED PRN 12/07/18 20:13 Nystatin [Nystop] 0 gm TOP QID PRN 12/07/18 20:15 Pharmacy to Dose - Warfarin 1 dose .XX ASDIRECTED 12/07/18 Dinner Heart Healthy Diet [DIET] 12/08/18 05:11 BASIC METABOLIC PANEL,BMP [CHEM] AM CBC WITH AUTO DIFF [HEME] AM INR,PT,PROTHROMBIN TIME [COAG] AM MAGNESIUM [CHEM] AM 12/09/18 05:11 BASIC METABOLIC PANEL,BMP [CHEM] AM CBC WITH AUTO DIFF [HEME] AM INR,PT,PROTHROMBIN TIME [COAG] AM MAGNESIUM [CHEM] AM 12/10/18 05:11 BASIC METABOLIC PANEL,BMP [CHEM] AM CBC WITH AUTO DIFF [HEME] AM INR,PT,PROTHROMBIN TIME [COAG] AM MAGNESIUM [CHEM] AM 12/11/18 05:11 BASIC METABOLIC PANEL,BMP [CHEM] AM CBC WITH AUTO DIFF [HEME] AM INR,PT,PROTHROMBIN TIME [COAG] AM MAGNESIUM [CHEM] AM - Plan Plan:: Assessment: Acute: Inability to Care for Herself - is the primary caregiver and is currently hospitalized in [place] - Has chronic debility due to hx/o CVA with left sided deficits in - She is not able to care for herself - Daughter si from out of town to temporarily be with her - Need help with home care or possible placement Supratherapeutic INR - INR of 3.12 - On Warfarin for stroke prophylaxis - Pharmacy to dose Macrocytic and Hypochromic Anemia - Hgb is 10.; baseline is 12 - Folic Acid, B12, Vit D level and MMA - She is on warfarin Chronic: AR, Impaired Vision, PAF, Hx/o Tachy-Michael Syndrome, HLD, HTN, GERD, Urinary Incontinence, OA/DJD, Back Pain, CVA w/ Left side Hemiparesis, Seizure Disorder, Factor V Leiden Deficiency, Anxiety and Depression Plan: She remains clinically stable PT/OT to assess and treat DVT/GI Prophylaxis SW/CM for placement Fall Precautions Code status: CPR only Additional Orders as above Prognosis good Discharge pending placement
[2018-12-08] MEDS ORDERED: Non-Formulary Medication 1 Each (Warfarin 1 MG) PO SCH (00:24)
[2018-12-08 07:35] LABS: VITAMIN D,25-HYDROXY 6.6 ng/ml (30.0-100.0)
--- NOTE | 2018-12-08 07:39 | PCM.PN ---
- General Info Date of Service: 12/08/18 Admission Dx/Problem (Free Text): Admission Diagnosis/Problem Admission Diagnosis/Problem Self-care deficit in patient living alone - Patient Data Vitals - Most Recent: Last Vital Signs Temp 98.8 F 12/08/18 04:39 Pulse 59 L 12/08/18 04:39 Resp 16 12/08/18 04:39 BP 109/66 12/08/18 04:39 Pulse Ox 100 12/08/18 04:39 Weight - Most Recent: 147 lb 8 oz I&O - Last 24 Hours: Intake & Output 12/07/18 12/08/18 12/08/18 22:59 06:59 14:59 Intake Total 0 400 Balance 0 400 Lab Results Last 24 Hours: Laboratory Results - last 24 hr 12/08/18 12/08/18 12/08/18 Range/Units 04:35 04:35 04:35 WBC 6.63 (3.98-10.04) K/mm3 RBC 3.41 L (3.98-5.22) M/mm3 Hgb 10.4 L (11.2-15.7) gm/L Hct 34.3 (34.1-44.9) % MCV 100.6 H (79.4-94.8) fl MCH 30.5 (25.6-32.2) pg MCHC 30.3 L (32.2-35.5) g/dl RDW Std Deviation 47.7 H (36.4-46.3) fL Plt Count 218 (182-369) K/mm3 MPV 9.5 (9.4-12.3) fl Neut % (Auto) 75.1 H (34.0-71.1) % Lymph % (Auto) 12.8 L (19.3-51.7) % [place] % (Auto) 7.4 (4.7-12.5) % Eos % (Auto) 4.2 (0.7-5.8) Baso % (Auto) 0.3 (0.1-1.2) % Neut # (Auto) 4.98 (1.56-6.13) K/mm3 Lymph # (Auto) 0.85 L (1.18-3.74) K/mm3 [place] # (Auto) 0.49 H (0.24-0.36) K/mm3 Eos # (Auto) 0.28 (0.04-0.36) K/mm3 Baso # (Auto) 0.02 (0.01-0.08) K/mm3 PT 25.3 H (9.7-12.0) SECONDS INR 2.44 Sodium 142 (136-145) mEq/L Potassium 4.1 (3.5-5.1) mEq/L Chloride 103 (98-107) mEq/L Carbon Dioxide 35 H (21-32) mEq/L Anion Gap 8.1 (5-15) BUN 13 (7-18) mg/dL Creatinine 0.6 (0.55-1.02) mg/dL Est Cr Clr Drug Dosing 69.08 mL/min Estimated GFR (MDRD) > 60 (>60) mL/min BUN/Creatinine Ratio 21.7 H (14-18) Glucose 94 (83-115) mg/dL Calcium 8.7 (8.5-10.1) mg/dL Magnesium 2.1 (1.8-2.4) mg/dl Vitamin B12 (193-986) pg/ml Folate (8.6-58.9) ng/mL 12/08/18 Range/Units 04:35 WBC (3.98-10.04) K/mm3 RBC (3.98-5.22) M/mm3 Hgb (11.2-15.7) gm/L Hct (34.1-44.9) % MCV (79.4-94.8) fl MCH (25.6-32.2) pg MCHC (32.2-35.5) g/dl RDW Std Deviation (36.4-46.3) fL Plt Count (182-369) K/mm3 MPV (9.4-12.3) fl Neut % (Auto) (34.0-71.1) % Lymph % (Auto) (19.3-51.7) % [place] % (Auto) (4.7-12.5) % Eos % (Auto) (0.7-5.8) Baso % (Auto) (0.1-1.2) % Neut # (Auto) (1.56-6.13) K/mm3 Lymph # (Auto) (1.18-3.74) K/mm3 [place] # (Auto) (0.24-0.36) K/mm3 Eos # (Auto) (0.04-0.36) K/mm3 Baso # (Auto) (0.01-0.08) K/mm3 PT (9.7-12.0) SECONDS INR Sodium (136-145) mEq/L Potassium (3.5-5.1) mEq/L Chloride (98-107) mEq/L Carbon Dioxide (21-32) mEq/L Anion Gap (5-15) BUN (7-18) mg/dL Creatinine (0.55-1.02) mg/dL Est Cr Clr Drug Dosing mL/min Estimated GFR (MDRD) (>60) mL/min BUN/Creatinine Ratio (14-18) Glucose (83-115) mg/dL Calcium (8.5-10.1) mg/dL Magnesium (1.8-2.4) mg/dl Vitamin B12 332 (193-986) pg/ml Folate 7.2 L (8.6-58.9) ng/mL Med Orders - Current: Current Medications Acetaminophen (Tylenol) 650 mg PO Q4H PRN PRN Reason: Pain (Mild 1-3)/fever Hydrocodone Bitart/Acetaminophen ([place] 325-5 Mg) 1 tab PO Q4H PRN PRN Reason: Pain (moderate 4-6) Albuterol/Ipratropium (Duoneb 3.0-0.5 Mg/3 Ml) 3 ml NEB Q4H PRN PRN Reason: Shortness Of Breath/wheezing Bisacodyl (Dulcolax) 5 mg PO DAILY PRN PRN Reason: Constipation Docusate Sodium (Colace) 100 mg PO BID PRN PRN Reason: Constipation Hydromorphone HCl (Dilaudid) 0.25 mg IVPUSH Q2H PRN PRN Reason: Pain (severe 7-10) Promethazine HCl 6.25 mg/ (Sodium Chloride) 50.25 mls @ 100 mls/hr IV Q6H PRN PRN Reason: Nausea/Vomiting Lorazepam (Ativan) 0.25 mg IV Q6H PRN PRN Reason: Anxiety Nystatin (Nystop) 0 gm TOP QID PRN PRN Reason: groin excoriation Last Admin: 12/07/18 20:32 Dose: 1 applic Ondansetron HCl (Zofran) 4 mg IV Q6H PRN PRN Reason: Nausea/Vomiting Ezetimibe [Zetia] 10 (Mg Ptom) 0 each PO DAILY [facility] Last Admin: 12/07/18 09:32 Dose: 1 each Famotidine 20 Mg (Ptom) 0 each PO BID [facility] Last Admin: 12/07/18 20:36 Dose: 1 each Furosemide [Lasix] (20 Mg Ptom) 0 each PO DAILY [facility] Last Admin: 12/07/18 09:32 Dose: 1 each Metoprolol Tartrate (12.5 Mg Ptom) 0 each PO BID [facility] Last Admin: 12/07/18 20:36 Dose: 1 each Propylene Glycol [ Systane Complete] Ptom 0 each EYEBOTH QID [facility] Last Admin: 12/07/18 20:34 Dose: 1 each Rosuvastatin 10 Mg * (*Ptom) 0 each PO DAILY [facility] Last Admin: 12/07/18 09:34 Dose: 1 each Sertraline 100 Mg (Ptom) 0 each PO DAILY [facility] Last Admin: 12/07/18 09:34 Dose: 1 each Polyethylene Glycol (Miralax) 17 gm PO DAILY PRN PRN Reason: Constipation Senna/Docusate Sodium (Senna Plus) 1 tab PO BID PRN PRN Reason: Constipation Temazepam (Restoril) 7.5 mg PO BEDTIME PRN PRN Reason: Sleep Warfarin Sodium (Pharmacy To Dose - Warfarin) 0 dose PO ASDIRECTED PRN PRN Reason: RX TO DOSE WARFARIN Discontinued Medications Non-Formulary Medication (Warfarin) 1 mg PO TUFR [facility] Non-Formulary Medication (Warfarin [Coumadin]) [facility] Warfarin Sodium (Coumadin Sliding Scale) 0 each PO QPM [facility] Stop: 12/07/18 18:01 Last Admin: 12/07/18 18:18 Dose: Not Given Warfarin Sodium (Pharmacy To Dose - Warfarin) 1 dose .XX ASDIRECTED [facility] - Plan Plan:: Assessment: Acute: Inability to Care for Herself - is the primary caregiver and is currently hospitalized in [place] - Has chronic debility due to hx/o CVA with left sided deficits in - She is not able to care for herself - Daughter si from out of town to temporarily be with her - Need help with home care or possible placement Supratherapeutic INR - INR of 3.12 - On Warfarin for stroke prophylaxis - Pharmacy to dose Macrocytic and Hypochromic Anemia - Hgb is 10.; baseline is 12 - Folic Acid, B12, Vit D level and MMA - She is on warfarin Chronic: AR, Impaired Vision, PAF, Hx/o Tachy-Michael Syndrome, HLD, HTN, GERD, Urinary Incontinence, OA/DJD, Back Pain, CVA w/ Left side Hemiparesis, Seizure Disorder, Factor V Leiden Deficiency, Anxiety and Depression Plan: She remains clinically stable PT/OT to assess and treat DVT/GI Prophylaxis SW/CM for placement Fall Precautions Code status: CPR only Additional Orders as above Prognosis good Discharge pending placement
[2018-12-08] MEDS: EZETIMIBE 10 MG PO SCH (08:59)
[2018-12-08] MEDS ORDERED: Cholecalciferol (Vitamin D3) 5,000 UNIT Tab PO SCH (09:00)
[2018-12-08] MEDS: FAMOTIDINE 20 MG PO SCH (09:02)
[2018-12-08] MEDS: FUROSEMIDE 20 MG PO SCH (09:04)
[2018-12-08] MEDS: PROPYLENE GLYCOL EYEBOTH SCH ×2 (09:04→12:25)
[2018-12-08] MEDS: METOPROLOL TARTRATE 12.5 MG PO SCH (09:04)
[2018-12-08] MEDS: Rosuvastatin 10 MG **PTOM PO SCH (09:05)
[2018-12-08] MEDS: SERTRALINE 100 MG PO SCH (09:06)
[2018-12-08] MEDS: Nystatin Topical Powder 15 GM Bottle TOP PRN (09:10)
[2018-12-08 12:31] VITALS: BP 127/106
--- NOTE | 2018-12-08 12:38 | PCM.DCSUM1 ---
Discharge Summary - Hospital Course HPI Initial Comments: This is a 73 yo elderly white female with past medical hx/o R, Impaired Vision, PAF, Hx/o Tachy-Michael Syndrome, HLD, HTN, GERD, Urinary Incontinence, OA/DJD, Back Pain, CVA w/ Left side Hemiparesis, Seizure Disorder, Factor V Leiden Deficiency, Anxiety and Depression who comes in for inability to care for herself. She has chronic debility due to hx/o CVA with left sided hemiparesis in 2003. She is dependent with her for activities of daily living. Unfortunately, her is currently hospitalized in [place] and will be requiring bone surgery soon. Her daughter who lives out of state is temporarily caring for her. She has no acute complaints or issues. She comes to the hospital to seek help for home care. Diagnosis: Stroke: No - Discharge Data Discharge Date: 12/08/18 (Admit date: 12/06/18) Discharge Disposition: DC/Tfer to SNF 03 Condition: Good - Discharge Diagnosis/Problem(s) (1) Encounter for examination for admission to group home SNOMED Code(s): 085666959 ICD Code: Z02.2 - ENCOUNTER FOR EXAM FOR ADMISSION TO RESIDENTIAL INSTITUTION Status: Acute Priority: High Current Visit: Yes (2) History of CVA with residual deficit SNOMED Code(s): 723988231 ICD Code: I69.30 - UNSPECIFIED SEQUELAE OF CEREBRAL INFARCTION Status: Chronic Priority: Medium Current Visit: No - Patient Summary/Data Consults: Consultations 12/07/18 00:21 Consult to Case Management/Floor Coverings Salesperson [CONS] Routine Consult to Spiritual Care [CONS] Routine OT Evaluation and Treatment [CONS] Routine PT Evaluation and Treatment [CONS] Routine Labs Pending at D/C: [facility] Recommended Follow-up Testing/Procedures: Follow-up with primary care provider within 7-10 days of discharge, sooner if needed. Hospital Course: Tina was admitted to the medical floor observation status with an inability to care for herself. She has residual deficits including left-sided hemiparesis secondary to a CVA around 2003. Her has been her primary inside contractor sales and he was reportedly shipped to [place] to be hospitalized prior to the patient coming in. She also has some family that is out of town. On arrival her INR was 3.12 which was elevated. Home dosing was resumed prior to discharge. She was also noted to have a macrocytic and hypochromic anemia. Folic acid was low along with vitamin D. This was supplemented. She did work with PT/OT who were recommending SNF placement. Case management social work did work with her as well and ultimately were able to get her accepted into [facility]. Both family and the patient were in agreement to this. She was noted to have some excoriations in her groin and was receiving nystatin powder for this. This was continued at discharge. All other home medications were continued. She was supplemented on 5000 units vitamin D daily and 1 mg of folic acid daily due to her low vitamin D and folate. She was discharged today. She should continue working with PT and OT while at [facility]. - Patient Instructions Diet: Heart Healthy Diet Activity: As Tolerated Driving: Do Not Drive Showering/Bathing: May Shower Notify Provider of: Fever, Increased Pain, Nausea and/or Vomiting Other/Special Instructions: Follow-up with primary care provider within 7-10 days of discharge. Continue PT/OT at SNF. Take all new medications as prescribed. Resume home medications as ordered. Should symptoms return or worsen contact primary care provider or return to the Emergency Room. - Discharge Plan *PRESCRIPTION DRUG MONITORING PROGRAM REVIEWED*: Not Applicable *COPY OF PRESCRIPTION DRUG MONITORING REPORT IN PATIENT YAYA: Not Applicable Prescriptions/Med Rec: Cholecalciferol (Vitamin D3) [Vitamin D3] 5,000 unit PO DAILY #20 tablet Folic Acid 1 mg PO BEDTIME #20 tablet Nystatin [Nystop] 0 gm TOP QID PRN #1 bottle PRN Reason: groin excoriation Home Medications: Home Meds Ezetimibe [Zetia] 10 mg PO DAILY 12/13/13 [History] Famotidine 20 mg PO BID 09/15/15 [History] Metoprolol Tartrate 12.5 mg PO BID 09/15/15 [History] Sertraline HCl [Zoloft] 100 mg PO DAILY 09/15/15 [History] Warfarin [Coumadin] 0.5 mg PO [facility] 09/15/15 [History] Warfarin [Coumadin] 1 mg PO TUFR 09/15/15 [History] Furosemide [Lasix] 20 mg PO DAILY 12/06/18 [History] Propylene Glycol [Systane Complete] 1 drop TOP QID 12/06/18 [History] Rosuvastatin [Crestor] 10 mg PO DAILY 12/06/18 [History] Cholecalciferol (Vitamin D3) [Vitamin D3] 5,000 unit PO DAILY #20 tablet [Rx] Folic Acid 1 mg PO BEDTIME #20 tablet 12/08/18 [Rx] Nystatin [Nystop] 0 gm TOP QID PRN #1 bottle 12/08/18 [Rx] Oxygen Therapy Mode: Room Air Referrals: Zach Gonzalez MD [Primary Care Provider] - 12/15/18 3:15 pm - Discharge Summary/Plan Comment DC Time >30 min.: No - General Info Date of Service: 12/08/18 Functional Status: Reports: Pain Controlled, Tolerating Diet, Urinating. Denies : New Symptoms - Review of Systems General: Reports: Weakness. Denies: Fever, Fatigue, Malaise, Chills HEENT: Reports: Other (Pain below her tongue. Unable to see ulceration or lesion ). Denies: Headaches, Sore Throat Pulmonary: Reports: No Symptoms. Denies: Shortness of Breath, Cough, Sputum, Wheezing Cardiovascular: Reports: Edema (mild L >R chronic ). Denies: Chest Pain, Palpitations Gastrointestinal: Reports: No Symptoms. Denies: Abdominal Pain, Constipation, Diarrhea, Nausea, Vomiting Genitourinary: Reports: No Symptoms. Denies: Pain Musculoskeletal: Reports: No Symptoms Skin: Reports: No Symptoms. Denies: Cyanosis Neurological: Reports: Pre-Existing Deficit (left sided hemiplegia ), Difficulty Walking, Weakness, Gait Disturbance. Denies: Trouble Speaking Psychiatric: Reports: No Symptoms - Patient Data Vitals - Most Recent: Last Vital Signs Temp 98.1 F 12/08/18 12:22 Pulse 58 L 12/08/18 12:22 Resp 18 12/08/18 12:22 BP 127/106 H 12/08/18 12:22 Pulse Ox 100 12/08/18 12:22 Weight - Most Recent: 147 lb 8 oz I&O - Last 24 hours: Intake & Output 12/07/18 12/08/18 12/08/18 22:59 06:59 14:59 Intake Total 0 400 120 Balance 0 400 120 Lab Results - Last 24 hrs: Laboratory Results - last 24 hr 12/08/18 12/08/1812/08/19 Range/Units 04:35 04:35 04:35 WBC 6.63 (3.98-10.04) K/mm3 RBC 3.41 L (3.98-5.22) M/mm3 Hgb 10.4 L (11.2-15.7) gm/L Hct 34.3 (34.1-44.9) % MCV 100.6 H (79.4-94.8) fl MCH 30.5 (25.6-32.2) pg MCHC 30.3 L (32.2-35.5) g/dl RDW Std Deviation 47.7 H (36.4-46.3) fL Plt Count 218 (182-369) K/mm3 MPV 9.5 (9.4-12.3) fl Neut % (Auto) 75.1 H (34.0-71.1) % Lymph % (Auto) 12.8 L (19.3-51.7) % [place] % (Auto) 7.4 (4.7-12.5) % Eos % (Auto) 4.2 (0.7-5.8) Baso % (Auto) 0.3 (0.1-1.2) % Neut # (Auto) 4.98 (1.56-6.13) K/mm3 Lymph # (Auto) 0.85 L (1.18-3.74) K/mm3 [place] # (Auto) 0.49 H (0.24-0.36) K/mm3 Eos # (Auto) 0.28 (0.04-0.36) K/mm3 Baso # (Auto) 0.02 (0.01-0.08) K/mm3 PT 25.3 H (9.7-12.0) SECONDS INR 2.44 Sodium 142 (136-145) mEq/L Potassium 4.1 (3.5-5.1) mEq/L Chloride 103 (98-107) mEq/L Carbon Dioxide 35 H (21-32) mEq/L Anion Gap 8.1 (5-15) BUN 13 (7-18) mg/dL Creatinine 0.6 (0.55-1.02) mg/dL Est Cr Clr Drug Dosing 69.08 mL/min Estimated GFR (MDRD) > 60 (>60) mL/min BUN/Creatinine Ratio 21.7 H (14-18) Glucose 94 (83-115) mg/dL Calcium 8.7 (8.5-10.1) mg/dL Magnesium 2.1 (1.8-2.4) mg/dl Vitamin B12 (193-986) pg/ml Vitamin D 25-Hydroxy 6.6 L (30.0-100.0) ng/ml Folate (8.6-58.9) ng/mL 12/08/18 Range/Units 04:35 WBC (3.98-10.04) K/mm3 RBC (3.98-5.22) M/mm3 Hgb (11.2-15.7) gm/L Hct (34.1-44.9) % MCV (79.4-94.8) fl MCH (25.6-32.2) pg MCHC (32.2-35.5) g/dl RDW Std Deviation (36.4-46.3) fL Plt Count (182-369) K/mm3 MPV (9.4-12.3) fl Neut % (Auto) (34.0-71.1) % Lymph % (Auto) (19.3-51.7) % [place] % (Auto) (4.7-12.5) % Eos % (Auto) (0.7-5.8) Baso % (Auto) (0.1-1.2) % Neut # (Auto) (1.56-6.13) K/mm3 Lymph # (Auto) (1.18-3.74) K/mm3 [place] # (Auto) (0.24-0.36) K/mm3 Eos # (Auto) (0.04-0.36) K/mm3 Baso # (Auto) (0.01-0.08) K/mm3 PT (9.7-12.0) SECONDS INR Sodium (136-145) mEq/L Potassium (3.5-5.1) mEq/L Chloride (98-107) mEq/L Carbon Dioxide (21-32) mEq/L Anion Gap (5-15) BUN (7-18) mg/dL Creatinine (0.55-1.02) mg/dL Est Cr Clr Drug Dosing mL/min Estimated GFR (MDRD) (>60) mL/min BUN/Creatinine Ratio (14-18) Glucose (83-115) mg/dL Calcium (8.5-10.1) mg/dL Magnesium (1.8-2.4) mg/dl Vitamin B12 332 (193-986) pg/ml Vitamin D 25-Hydroxy (30.0-100.0) ng/ml Folate 7.2 L (8.6-58.9) ng/mL Med Orders - Current: Current Medications Acetaminophen (Tylenol) 650 mg PO Q4H PRN PRN Reason: Pain (Mild 1-3)/fever Hydrocodone Bitart/Acetaminophen ([place] 325-5 Mg) 1 tab PO Q4H PRN PRN Reason: Pain (moderate 4-6) Albuterol/Ipratropium (Duoneb 3.0-0.5 Mg/3 Ml) 3 ml NEB Q4H PRN PRN Reason: Shortness Of Breath/wheezing Bisacodyl (Dulcolax) 5 mg PO DAILY PRN PRN Reason: Constipation Cholecalciferol (Vitamin D3) 5,000 unit PO DAILY [facility] Last Admin: 12/08/18 09:06 Dose: 5,000 unit Docusate Sodium (Colace) 100 mg PO BID PRN PRN Reason: Constipation Folic Acid (Folic Acid) 1 mg PO BEDTIME [facility] Hydromorphone HCl (Dilaudid) 0.25 mg IVPUSH Q2H PRN PRN Reason: Pain (severe 7-10) Promethazine HCl 6.25 mg/ (Sodium Chloride) 50.25 mls @ 100 mls/hr IV Q6H PRN PRN Reason: Nausea/Vomiting Lorazepam (Ativan) 0.25 mg IV Q6H PRN PRN Reason: Anxiety Nystatin (Nystop) 0 gm TOP QID PRN PRN Reason: groin excoriation Last Admin: 12/08/18 09:10 Dose: 1 applic Ondansetron HCl (Zofran) 4 mg IV Q6H PRN PRN Reason: Nausea/Vomiting Ezetimibe [Zetia] 10 (Mg Ptom) 0 each PO DAILY [facility] Last Admin: 12/08/18 08:59 Dose: 1 each Famotidine 20 Mg (Ptom) 0 each PO BID [facility] Last Admin: 12/08/18 09:02 Dose: 1 each Furosemide [Lasix] (20 Mg Ptom) 0 each PO DAILY [facility] Last Admin: 12/08/18 09:04 Dose: 1 each Metoprolol Tartrate (12.5 Mg Ptom) 0 each PO BID [facility] Last Admin: 12/08/18 09:04 Dose: 1 each Propylene Glycol [ Systane Complete] Ptom 0 each EYEBOTH QID [facility] Last Admin: 12/08/18 12:25 Dose: 1 each Rosuvastatin 10 Mg * (*Ptom) 0 each PO DAILY [facility] Last Admin: 12/08/18 09:05 Dose: 1 each Sertraline 100 Mg (Ptom) 0 each PO DAILY [facility] Last Admin: 12/08/18 09:06 Dose: 1 each Warfarin 1 Mg Tab (Ptom) 0 each PO QPM [facility] Stop: 12/08/18 18:01 Polyethylene Glycol (Miralax) 17 gm PO DAILY PRN PRN Reason: Constipation Senna/Docusate Sodium (Senna Plus) 1 tab PO BID PRN PRN Reason: Constipation Temazepam (Restoril) 7.5 mg PO BEDTIME PRN PRN Reason: Sleep Warfarin Sodium (Pharmacy To Dose - Warfarin) 0 dose PO ASDIRECTED PRN PRN Reason: RX TO DOSE WARFARIN Discontinued Medications Non-Formulary Medication (Warfarin) 1 mg PO TUREPLACED BY [facility] Non-Formulary Medication (Warfarin [Coumadin]) 0.5 mg PO [place] Last Admin: 12/08/18 07:46 Dose: Not Given Warfarin Sodium (Coumadin Sliding Scale) 0 each PO QPM [facility] Stop: 12/07/18 18:01 Last Admin: 12/07/18 18:18 Dose: Not Given Warfarin Sodium (Pharmacy To Dose - Warfarin) 1 dose .XX ASDIRECTED [facility] - Exam Quality Assessment: Reports: Supplemental Oxygen (2L), DVT Prophylaxis General: Reports: Alert, Oriented, Cooperative, No Acute Distress HEENT: Reports: Pupils Equal, Pupils Reactive, EOMI, Mucous Membr. Moist/[place] Neck: Reports: Supple, Trachea Midline, No JVD Lungs: Reports: Clear to Auscultation, Normal Respiratory Effort, Decreased Breath Sounds Cardiovascular: Reports: Irregular Rhythm GI/Abdominal Exam: Normal Bowel Sounds, Soft, Non-Tender, No Organomegaly, No Distention (Female) Exam: Deferred Rectal (Female) Exam: Deferred Back Exam: Reports: Normal Inspection, Decreased Range of Motion Extremities: Normal Inspection, Normal Range of Motion, Non-Tender, Normal Capillary Refill, Pedal Edema (Trace L >R) Skin: Reports: Warm, Dry, Intact Neurological: Reports: No New Focal Deficit Psy/Mental Status: Reports: Alert, Normal Affect, Normal Mood
[2018-12-08] MEDS ORDERED: WARFARIN 1 MG PO SCH (18:00)
[2018-12-08] MEDS ORDERED: Folic Acid 1 MG Tab PO SCH (21:00)
== END 2018-12-08 13:35 ==
LOC: JD.ED 17:50 → JD.MS 20:35
PROVIDERS: ADMIT Internal Medicine Critical Care Medicine; ATTEND Internal Medicine
DX: R53.81 Other malaise (principal); I69.954 Hemiplegia and hemiparesis following unspecified cerebrovascular disease affecting left non-dominant side; I48.0 Paroxysmal atrial fibrillation; I49.5 Sick sinus syndrome; I10 Essential (primary) hypertension; E78.00 Pure hypercholesterolemia, unspecified; D53.9 Nutritional anemia, unspecified; D50.9 Iron deficiency anemia, unspecified; D68.51 Activated protein C resistance; K21.9 Gastro-esophageal reflux disease without esophagitis; F41.9 Anxiety disorder, unspecified; F32.9 Major depressive disorder, single episode, unspecified; G40.909 Epilepsy, unspecified, not intractable, without status epilepticus; M19.90 Unspecified osteoarthritis, unspecified site; Z74.2 Need for assistance at home and no other household member able to render care; Z88.5 Allergy status to narcotic agent; Z88.1 Allergy status to other antibiotic agents; Z88.8 Allergy status to other drugs, medicaments and biological substances; Z88.0 Allergy status to penicillin; Z88.2 Allergy status to sulfonamides; Z79.01 Long term (current) use of anticoagulants; Z79.899 Other long term (current) drug therapy
CPT/HCPCS: 36415; 80048; 82306; 82607; 82746; 83735; 83921; 85025; 85610; 94760; 97161; 97167; 97530; 99285; A9270; 99282; G0378

== ENCOUNTER 2021-03-25 08:02 | Emergency (ER) | payer MEDICARE, BC, MEDICAID ==
--- NOTE | 2021-03-25 08:39 | EDM.PDOC ---
ED HPI GENERAL MEDICAL PROBLEM - General Chief Complaint: Skin Complaint Stated Complaint: [facility] Time Seen by Provider: 03/25/21 08:15 Source of Information: Reports: Patient, EMS, [facility] Records History Limitations: Reports: No Limitations - History of Present Illness INITIAL COMMENTS - FREE TEXT/NARRATIVE: The patient presents by [facility] from [facility]. The patient has a pressure ulcer to the left heel. She also had diminished pulses to that foot. The patient upon arrival had no complaints. She has no fever, chills, cough, chest pain, shortness of breath, abdominal pain, nausea, vomiting or pain in her left leg. 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 She does have a padded boot for that foot. There is no redness or drainage from that area. Onset: Gradual Duration: Week(s): Improves with: Reports: None Worsens with: Reports: None Associated Symptoms: Reports: No Other Symptoms - Related Data Allergies Allergy/AdvReac Type Severity Reaction Status Date / Time cephalexin Allergy Cannot Verified 03/25/21 08:17 Remember codeine Allergy Cannot Verified 03/25/21 08:17 Remember dextromethorphan Allergy Cannot Verified 03/25/21 08:17 Remember doxycycline Allergy Cannot Verified 03/25/21 08:17 Remember guaifenesin Allergy Cannot Verified 03/25/21 08:17 Remember Penicillins Allergy Rash Verified 03/25/21 08:17 phenobarbital Allergy Cannot Verified 03/25/21 08:17 Remember sodium benzoate Allergy Hives Verified 03/25/21 08:17 Sulfa (Sulfonamide Allergy Cannot Verified 03/25/21 08:17 Antibiotics) Remember clarithromycin AdvReac Pain Verified 03/25/21 08:17 promethazine AdvReac Diarrhea Verified 03/25/21 08:17 Home Meds: Home Meds Ezetimibe [Zetia] 10 mg PO DAILY 12/13/13 [History] Famotidine 20 mg PO BID 09/15/15 [History] Metoprolol Tartrate 12.5 mg PO BID 09/15/15 [History] Sertraline HCl [Zoloft] 100 mg PO DAILY 09/15/15 [History] Warfarin [Coumadin] 0.5 mg PO SUMOWETHSA 09/15/15 [History] Warfarin [Coumadin] 1 mg PO TUFR 09/15/15 [History] Furosemide [Lasix] 20 mg PO DAILY 12/06/18 [History] Propylene Glycol [Systane Complete] 1 drop TOP QID 12/06/18 [History] Rosuvastatin [Crestor] 10 mg PO DAILY 12/06/18 [History] Cholecalciferol (Vitamin D3) [Vitamin D3] 5,000 unit PO DAILY #20 tablet 12/08/18 [Rx] Folic Acid 1 mg PO BEDTIME #20 tablet 12/08/18 [Rx] Nystatin [Nystop] 0 gm TOP QID PRN #1 bottle 12/08/18 [Rx] Past Medical History HEENT History: Reports: Allergic Rhinitis, Impaired Vision Cardiovascular History: Reports: Afib, Arrhythmia, Heart Murmur, High Cholesterol, Hypertension, Other (See Below) Other Cardiovascular History: aortic valve stenosis, palpitations Respiratory History: Reports: Other (See Below) Other Respiratory History: aspiration pneumonia Gastrointestinal History: Reports: GERD, Hemorrhoids Genitourinary History: Reports: Urinary Incontinence 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: Musculoskeletal History: Reports: Back Pain, Chronic, Osteoarthritis Neurological History: Reports: CVA, Seizure Other Neuro History: left sided paralysis Psychiatric History: Reports: Anxiety, Depression Other Psychiatric History: states she gets excited real easy Endocrine/Metabolic History: Reports: None Hematologic History: Reports: Anticoagulation Therapy, Other (See Below) Other Hematologic History: factor 5 leiden Immunologic History: Reports: None Oncologic (Cancer) History: Reports: None Dermatologic History: Reports: None Other Dermatologic History: dry, flaking scalp - Past Surgical History Head Surgeries/Procedures: Reports: None HEENT Surgical History: Reports: Cataract Surgery Cardiovascular Surgical History: Reports: Pacer Female Surgical History: Reports: Tubal Ligation Other Musculoskeletal Surgeries/Procedures:: L side completely paralyzed Social & Family History - Family History Family Medical History: No Pertinent Family History Neurological: Reports: CVA - Caffeine Use Caffeine Use: Reports: Soda Other Caffeine Use: 2-3 soda/day - Living Situation & Occupation Living situation: Reports: , with Spouse Occupation: Retired ED ROS GENERAL - Review of Systems Review Of Systems: See Below Constitutional: Reports: No Symptoms HEENT: Reports: No Symptoms Respiratory: Reports: No Symptoms Cardiovascular: Reports: No Symptoms Endocrine: Reports: No Symptoms GI/Abdominal: Reports: No Symptoms : Reports: No Symptoms Musculoskeletal: Reports: Other (Left heal has a blackened scab) ED EXAM, SKIN/RASH Exam: See Below Exam Limited By: No Limitations General Appearance: Alert, No Apparent Distress Ears: Normal External Exam Nose: Normal Inspection Head: Atraumatic, Normocephalic Neck: Normal Inspection Respiratory/Chest: No Respiratory Distress, Lungs Clear, Normal Breath Sounds Cardiovascular: Regular Rate, Rhythm, No Edema, No Murmur GI/Abdominal: Soft, Non-Tender, No Organomegaly, No Mass Extremities: Other (2.5cm scab to the left heel. No erythema, no drainage or edema. Good capillary refill and pulses were easily found with doplar.) Course - Vital Signs Last Recorded V/S: Last Vital Signs Temp 98.2 F 03/25/21 08:02 Pulse 70 03/25/21 08:02 Resp 16 03/25/21 08:02 BP 120/99 H 03/25/21 08:02 Pulse Ox 96 03/25/21 08:02 - Re-Assessments/Exams Free Text/Narrative Re-Assessment/Exam: 03/25/21 08:45 Her heel has a scab on it. No sign of infection. She does have some decreased circulation to that foot but with doplar pulses were easily found. I feel no ne treatment is necessary. I will have her keep using the boot to protect that area. Departure - Departure Time of Disposition: 08:50 Disposition: Home, Self-Care 01 Condition: Good Clinical Impression: Pressure ulcer of foot, unstageable Qualifiers: Laterality: left Qualified Code(s): L89.890 - Pressure ulcer of other site, unstageable - Discharge Information *PRESCRIPTION DRUG MONITORING PROGRAM REVIEWED*: Not Applicable *COPY OF PRESCRIPTION DRUG MONITORING REPORT IN PATIENT YAYA: Not Applicable Referrals: Zach Gonzalez MD [Primary Care Provider] - 1 Week Forms: ED Department Discharge Additional Instructions: Keep using the boot to help protect the heel. You could also put your leg on a pillow to help reduce pressure on that area. Follow up with Dr Gonzalez within a week. Please return if you are worse. Sepsis Event Note (ED) - Focused Exam Vital Signs: Vital Signs Temp Pulse Resp BP Pulse Ox 03/25/21 08:02 98.2 F 70 16 120/99 H 96
[2021-03-25 10:56] VITALS: BP 120/79; PULSE 60
== END 2021-03-25 10:30 | disposition home or self-care (01) ==
LOC: JD.ED 08:02
DX: L89.890 Pressure ulcer of other site, unstageable (principal); I48.91 Unspecified atrial fibrillation; I10 Essential (primary) hypertension; E78.00 Pure hypercholesterolemia, unspecified; K21.9 Gastro-esophageal reflux disease without esophagitis; Z88.1 Allergy status to other antibiotic agents; Z88.5 Allergy status to narcotic agent; Z88.8 Allergy status to other drugs, medicaments and biological substances; Z88.0 Allergy status to penicillin; Z88.2 Allergy status to sulfonamides; Z79.899 Other long term (current) drug therapy
CPT/HCPCS: 99283